=== PATIENT | female | born 1955 | race Caucasian/White ===

== ENCOUNTER 2020-09-07 07:32 | Outpatient (REF) | payer OTHER, SELFPAY ==
[2020-09-07 11:09] LABS: Hematocrit 38.1 % (37-47); Hemoglobin 12.5 g/dl (12.0-16.0); Mean Corpuscular HGB Conc 32.8 g/dl (31.0-35.0); Mean Corpuscular Hemoglobin 30.9 pg (27.0-33.0); Mean Corpuscular Volume 94.3 fL (80-98); Mean Platelet Volume 11.1 fL (9.4-12.3); Platelet Count 292 X10*3/uL (160-400); Red Blood Count 4.04 X10*6/uL (4.20-5.50); Red Cell Distribution Width 11.7 % (11.0-16.0); White Blood Count 5.2 X10*3/uL (4.8-10.8)
[2020-09-07 11:27] LABS: Alanine Aminotransferase 15 U/L (0-31); Albumin Level 4.2 g/dL (3.5-5.0); Alkaline Phosphatase 65 U/L (39-117); Anion Gap 14 (12-20); Aspartate Amino Transferase 17 U/L (5-31); Bilirubin Total 0.7 mg/dL (0.0-1.0); Blood Urea Nitrogen 20 mg/dL (9-16); Calcium 9.5 mg/dL (8.4-10.2); Carbon Dioxide 29 mmol/L (22-29); Chloride 104 mmol/L (96-108); Cholesterol 252 mg/dL; Estimated Glomerular Filt Rate > 60; Glucose Fasting 98 mg/dL (60-99); HDL Cholesterol 71 mg/dL; LDL Cholesterol Calculated 169 mg/dl; Potassium 5.1 mmol/l (3.3-5.1); Sodium 142 mmol/L (135-145); Total Protein 6.4 g/dL (6.5-8.0); Triglycerides 61 mg/dL
[2020-09-08 10:26] LABS: ~HepC Num1 0.07 S/CO (0.00-0.79); ~Hepatitis C Antibody Nonreactive (Nonreactive)
== END 2020-09-07 07:33 | disposition home or self-care (01) ==
LOC: HO.MANLDS 07:32
PROVIDERS: PCP Internal Medicine; Visit Provider Internal Medicine
DX: Z00.00 Encounter for general adult medical examination without abnormal findings (principal); Z11.59 Encounter for screening for other viral diseases
CPT/HCPCS: 36415; 80053; 80061; 85027; 86803

== ENCOUNTER 2025-07-02 09:27 | Outpatient (AMB) | payer MEDICARE, OTHER, SELFPAY ==
--- NOTE | 2025-07-02 09:30 | A.OFFVIS_ITS ---
Vital Signs 3 07/02/25 10:27 Height 5 ft 6 in Weight 126 lb BMI 20.3 BP 169/75 H Blood Pressure Location Lt brachial Position Sitting Pulse 56 Intake Visit Reasons: Left hip lipoma Intake Note: Patient is seen in office evalaution of the lipoma of the upper extremity. Pt c/o: has a mas on the back of the left hip, was removed in the past [address] Martinez, it came back a year ago, denies pain or increase, discharge or other concerns Supervisor Car Installations Required: No Accompanied by: Spouse Allergies codeine Allergy (Mild, Verified 07/02/25 10:39) Unknown lisinopril Allergy (Mild, Verified 07/02/25 10:39) Unknown medroxyprogesterone (From Provera) Allergy (Mild, Verified 07/02/25 10:39) Unknown metronidazole Allergy (Mild, Verified 07/02/25 10:39) Unknown naproxen (From Aleve) Allergy (Mild, Verified 07/02/25 10:39) Unknown Seasonal Allergies Allergy (Mild, Verified 07/01/25 15:59) Unknown vicryl stitches Allergy (Mild, Uncoded 07/02/25 10:39) Unknown Medication List - Last Reconciled 07/02/25 by Edward North MD calcium carbonate-vitamin D3 600 mg-12.5 mcg (500 unit) caps PO digestive enzymes 1 tab PO DAILY fluticasone furoate 27.5 mcg/actuation (Flonase Sensimist) 1 spray intranasal DAILY L. acidophilus,casei,rhamnosus 50 billion cell (BiomePRO) 1 cap PO DAILY metoprolol succinate ER 50 mg PO DAILY olmesartan 5 mg PO DAILY HPI Comments Details: 69-year-old female patient presenting with a palpable lump located in the left hip. She previously underwent excision of this lump in 2018 but over the past year has noted the lump to have returned in seems to be increasing in size. She reports to lipoma was initially like the size of a deck of cards. She denies any problems with the previous surgical procedure although does report an allergy to Vicryl sutures noted after previous laparoscopic surgery. She has requested excision of this recurrent lipoma of the left hip. [facility] Medical History (Updated 07/02/25 @ 10:29 by Edward North MD) Hypertension Surgical History (Updated 07/02/25 @ 10:36 by ZION Young) Hx of colonoscopy (04/28/24) Hx of local excision of skin lesion (~2017) History of surgery on left wrist (~2016) Hx of tonsillectomy (~1989) History of appendectomy (~1976) Hx laparoscopic cholecystectomy Review of Systems Const All systems reviewed & are unremarkable except as noted in HPI and below Physical Exam Vital Signs: Last Vital Signs Pulse 56 07/02/25 10:27 BP 169/75 H 07/02/25 10:27 BMI result Body Mass Index 20.3 Const General: cooperative and no acute distress Nutritional Appearance: well nourished Orientation/consciousness: patient oriented x3 Limitations: no limitations HEENT Head: Yes normocephalic and Yes atraumatic Ears: hearing grossly normal bilaterally Resp Effort & Inspection: normal respiratory effort, no audible wheezes, no cough and no respiratory distress Cardio Jugular venous distension: no JVD GI Inspection: Yes normal to inspection Skin Other: Warm, dry, no rash Neuro General: patient oriented x3 Extrem Other: Left hip with a well-healed incision and a palpable mass located just below this consistent with a lipoma measuring approximately 5 cm in diameter General: Yes no clubbing, cyanosis or edema Upper/lower leg/hip images: 2 1. Previous incision left hip 2. 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 She is requesting excision of this recurrent lipoma. Her previous procedure was done under anesthesia and she would prefer to do the same for this recurrent lipoma. I reviewed the procedure, risks, and alternatives and she consents to excision of the left hip lipoma which will be scheduled as a short-stay surgery. Coding Level of Care Code New Pt Level 4 (92563) Diagnoses Lipoma of left lower extremity D17.24 Laterality: left Lipoma location: lower extremity
[2025-07-02 10:27] VITALS: BP 169/75; PULSE 56; BMI 20.3
--- OUTSIDE RECORDS SUMMARY | 2025-07-02 10:28 | XMS_ITS | Encounter Summary ---
Author Organization [facility] Address [address] [facility] [address] [place] [address] Phone Care Team Providers Care Shoe Stock Associate Name Role Phone Edgardo Krishnan Lobo ROBLES Unavailable Kristal Wheeler PHYSICIST LIGHT AND OPTICS Unavailable Willy Juarez MD Unavailable [phone] Pastora Dee PHYSICIST LIGHT AND OPTICS Unavailable [phone] Sophia Pedroza PHYSICIST LIGHT AND OPTICS Unavailable Mendoza Atkinson MD Unavailable [phone] Radha Reyes FIRMWARE MANAGER Unavailable [phone] Edgardo Krishnan Primary Care Provider [phone] Augustine Wood MD Primary Care Provider + [phone] Augustine Wood MD Unavailable [phone] Encounter Details Date Type Department Care Team (Latest Contact Info) Description 01/22/2019 Transcribe Orders [facility] [address] [place] [address] Yandel Hightower MD [address] [facility], [address] [place], [place] [id number] [email or web address] Essential hypertension, malignant (Primary Dx) Social History Tobacco Use Types Packs/Day Years Used Date Smoking Tobacco: Never Smokeless Tobacco: Never Alcohol Use Standard Drinks/Week Comments No 0 (1 standard drink = 0.6 oz pur e alcohol) Comments No Sex and Gender Information Value Date Recorded Sex Assigned at Female 06/19/2020 7:21 PM EDT Legal Sex Female 9:54 PM EDT Gender Identity Female 08/28/2021 2:40 PM EST Sexual Orientation Not on file Occupation Industry Job Start Date Job End Date retired Not on file Not on file Not on file documented as of this encounter Plan of Treatment Upcoming Encounters Date Type Department Care Team (Late st Contact Info) Description 04/13/2026 2:30 PM EDT Office Visit [facility] [address] [place] [address] [place] [address] Augustine Wood MD [address] [facility], [address] [place] [address] [email or web address] documented as of this encounter Results * Albumin (01/22/2019 7:30 AM EDT) ALBUMIN 4.4 3.9 - 4.8 g/dL [facility] Blood 01/22/2019 7:30 AM EDT 01/22/2019 7:34 AM EDT Yandel Hightower MD LAB BLOOD ORDERABLES Final Re sult Performing Organization Address [facility] Co de Phone Number [address] [address] * Magnesium (01/22/2019 7:30 AM EDT) MAGNESIUM 2.1 1.6 - 2.6 mg/dL [facility] Blood 01/22/2019 7:30 AM EDT 01/22/2019 7:34 AM EDT Yandel Hightower MD LAB BLOOD ORDERABLES Final Re sult Performing Organization Address [facility] Co de Phone Number [address] [address] * Phosphorus (01/22/2019 7:30 AM EDT) PHOSPHORUS 4.1 2.7 - 4.5 mg/dL [facility] Blood 01/22/2019 7:30 AM EDT 01/22/2019 7:34 AM EDT us Yandel Hightower MD LAB BLOOD ORDERABLES Final Re sult Performing Organization Address City/[facility]/ZIP Co de Phone Number [address] [address] * (ABNORMAL) Basic metabolic panel (01/22/2019 7:30 AM EDT) SODIUM 142 133 - 146 mmol/L [facility] CHLORIDE 104 96 - 108 mmol/L [facility] POTASSIUM 5.2(H) 3.3 - 5.1 mmol/L [facility] CO2 28 21 - 35 mmol/L [facility] BUN 21(H) 6 - 19 mg/dL [facility] CREATININE 0.80 0.5 - 1.5 mg/dL [facility] GLUCOSE 110(H) 70 - 99 mg/dL [facility] CALCIUM 9.6 8.4 - 10.3 mg/dL [facility] EGFR 79 >59 mL/min/1.7 3m2 [facility] Comment:If patient is black, multiply result by 1.159. Estimated glomerular filtration rate calculated using the CKD-EPI equation. ANION GAP 15 10 - 20 mmol/L [facility] Blood 01/22/2019 7:30 AM EDT 01/22/2019 7:34 AM EDT us Yandel Hightower MD LAB BLOOD ORDERABLES Final Re sult Performing Organization Address City/[facility]/ZIP Co de Phone Number [address] [address] documented in this encounter Visit Diagnoses Diagnosis Essential hypertension, malignant- Primary documented in this encounter Care Teams Shoe Stock Associate Relationship Specialty Start Date End Date Edgardo Krishnan DO PCP - General Internal Medicine 07/29/17 07/08/22 Augustine Wood MD [address] [facility], [address] [place] [address] [email or web address] PCP - General Family Medicine 07/09/22 Edgardo Krishnan DO Historical LMR Provider 06/17/17 Kristal Wheeler NP [address] [place] [address] Historical LMR Provider 06/17/17 2 Willy Juarez MD [address] [place] [address] Historical LMR Provider 06/17/17 Pastora Dee NP [address] [place] [phone] Historical LMR Provider 06/17/17 2 Sophia Pedroza NP [address] [place] [address] [email or web address] Historical LMR Provider 06/17/17 2 Mendoza Atkinson MD [address] [place] [address] Historical LMR Provider 06/17/17 2 Radha Reyes CNP [address] [facility] [place] [address] Historical LMR Provider 06/17/17 Augustine Wood MD [address] [place] [address], [address] [place] [address] [email or web address] Insurance Assigned Provider 12/07/23 documented as of this encounter Additional Source Comments The information contained in this document represents components of the legal health record. It is not the complete legal health record.[facility]
--- OUTSIDE RECORDS SUMMARY | 2025-07-02 10:28 | XMS_ITS | Encounter Summary ---
Author Organization [facility] Address [address] [facility] [address] [place] [address] Phone Care Team Providers Care Returned Telephone Equipment Appraiser Name Role Phone Eulogio Edgardo Diamond DO Unavailable Kristal Wheeler DECORATING INSTRUCTOR Unavailable [phone] Willy Juarez MD Unavailable Pastora Dee DECORATING INSTRUCTOR Unavailable [phone] Sophia Pedroza DECORATING INSTRUCTOR Unavailable Mendoza Atkinson MD Unavailable [phone] Radha Reyes COMPOUNDER FLAVORINGS Unavailable [phone] Eulogio Edgardo Lobo Primary Care Provider [phone] Augustine Wood MD Primary Care Provider [phone] Augustine Wood MD Unavailable [phone] Encounter Details Date Type Department Care Team (Late st Contact Info) Description 05/15/2019 Ancillary Orders Virtual Department [address] [place] [address] Chelsey Wang MD [address] [facility], [address] [place] [address] Breast screening Social History Tobacco Use Types Packs/Day Years [...] Description 04/13/2026 2:30 PM EDT Office Visit [facility] [address] [place] [address] Augustine Wood MD [address] [facility] [place] [address] [email or web address] documented as of this encounter Results * BI MAMMOGRAM SCREENING WITH TOMOSYNTHESIS WITH CAD (BILATERAL) (08/14/2019 12:04 PM EST) Anatomical Region Laterality Modality Breast Left, Breast Right, Breast Bilateral Bila teral Mammography 08/14/2019 1:36 PM EST Impressions 08/14/2019 1:38 PM EST Stable appearance relative to prior imaging. No findings suggestive of malignancy are seen. BI-RADS CATEGORY: 1 - Negative. DENSITY: The breast tissue is heterogeneously dense, an appearance which lowers the sensitivity of mammography. POS - [id number] Narrative 08/14/2019 1:38 PM EST Full-field digital mammography is obtained with computer-aided detection. Comparison with prior imaging from July 30, 2018 is made with older imaging dating back as far as January 12, 2013 also reviewed. There is heterogeneous fibroglandular density evident in the breasts. In addition to 2-D C view imaging, tomosynthesis images are obtained in two projections of each breast. No dominant soft tissue mass of concern, suspicious cluster of calcifications, significant interval skin changes, or architectural distortion is identified. Procedure Note Rod Mcintyre MD - 08/14/2019 Full-field digital mammography is obtained with computer-aided detection.Comparison with prior imaging from July 30, 2018 is made with olderimaging dating back as far as January 12, 2013 also reviewed. There is heterogeneous fibroglandular density evident in the breasts. Inaddition to 2-D C view imaging, tomosynthesis images are obtained in twoprojections of each breast. No dominant soft tissue mass of concern, suspicious cluster ofcalcifications, significant interval skin changes, or architecturaldistortion is identified. IMPRESSION: Stable appearance relative to prior imaging. No findings suggestive ofmalignancy are seen. BI-RADS CATEGORY: 1 - Negative. DENSITY: The breast tissue is heterogeneously dense, an appearance whichlowers the sensitivity of mammography. POS - [id number] us Chelsey Wang MD IMG MG EXAMS Final Resu lt documented in this encounter Visit Diagnoses Diagnosis Breast screening Breast screening, unspecified Breast screening Breast screening, unspecified documented in this encounter Care Teams Returned Telephone Equipment Appraiser Relationship Specialty Start Date End Date Edgardo Krishnan DO PCP - General Internal Medicine 07/29/17 07/08/22 Augustine Wood MD [address] [place] [address], [address] [place] [address] PCP - General Family Medicine 07/09/22 Edgardo Krishnan DO Historical LMR Provider 06/17/17 Kristal Wheeler NP [address] [place] [address] Historical LMR Provider 06/17/17 2 Willy Juarez MD [address] [place] [address] Historical LMR Provider 06/17/17 Pastora Dee NP [address] [place] [phone] Historical LMR Provider 06/17/17 2 Sophia Pedroza NP [address] [place] [address] [email or web address] Historical LMR Provider 06/17/17 2 Mendoza Atkinson MD [address] [place] [address] Historical LMR Provider 06/17/17 2 Radha Reyes CNP [address] [place] [address] [address] [place] [address] Historical LMR Provider 06/17/17 Augustine Wood MD [address] [place] [address], [address] [place] [address] Insurance Assigned Provider 12/07/23 documented as of this encounter Additional Source Comments The information contained in this document represents components of the legal health record. It is not the complete legal health record.[facility]
--- OUTSIDE RECORDS SUMMARY | 2025-07-02 10:28 | XMS_ITS | Encounter Summary ---
Author Organization [facility] Address [address] [facility] [address] [place] [address] Phone Care Team Providers Care Obgyn Hospitalist Physician Name Role Phone Eulogio Edgardo Diamond DO Unavailable Kristal Wheeler CREDIT INTERVIEWER Unavailable [phone] Willy Juarez MD Unavailable Pastora Dee CREDIT INTERVIEWER Unavailable [phone] Sophia Pedroza CREDIT INTERVIEWER Unavailable Mendoza Atkinson MD Unavailable [phone] Radha Reyes INCOME TAX ADVISOR Unavailable [phone] Eulogio Edgardo Lobo Primary Care Provider [phone] Augustine Wood MD Primary Care Provider [phone] Augustine Wood MD Unavailable [phone] Encounter Details Date Type Department Care Team (Late st Contact Info) Description 05/15/2019 Ancillary Orders [facility] [address] [place] [address] Chelsey Wang MD [address] [facility], [address] [place], [place] [id number] [email or web address] Social History Tobacco Use Types Packs/Day Years [...] Description 04/13/2026 2:30 PM EDT Office Visit [facility] [address] [place] [address] Augustine Wood MD [address] [place] [address], [address] [place] [address] documented as of this encounter Visit Diagnoses Not on filedocumented in this encounter Care Teams Obgyn Hospitalist Physician Relationship Specialty Start Date End Date Edgardo Krishnan DO PCP - General Internal Medicine 07/29/17 07/08/22 Augustine Wood MD [address] [place] [address], [address] [place] [address] PCP - General Family Medicine 07/09/22 Edgardo Krishnan DO Historical LMR Provider 06/17/17 Kristal Wheeler NP [address] [place] [address] Historical LMR Provider 06/17/17 2 Willy Juarez MD [address] [place] [address] Historical LMR Provider 06/17/17 Pastora Dee NP [address] [place] [address] Historical LMR Provider 06/17/17 2 Sophia Pedroza NP [address] [place] [address] [email or web address] Historical LMR Provider 06/17/17 2 Mendoza Atkinson MD [address] [place] [address] Historical LMR Provider 06/17/17 2 Radha Reyes CNP [address] [place] [address] [address] [place] [address] Historical LMR Provider 06/17/17 Augustine Wood MD [address] [place] [address], [address] [address] Insurance Assigned Provider 12/07/23 documented as of this encounter Additional Source Comments The information contained in this document represents components of the legal health record. It is not the complete legal health record.[facility]
--- OUTSIDE RECORDS SUMMARY | 2025-07-02 10:28 | XMS_ITS | Encounter Summary ---
Author Organization [facility] Address [address] [address] Phone Care Team Providers Care Call Center Support Representative Name Role Phone Edgardo Krishnan DO Unavailable Kristal Wheeler CRUST SORTER Unavailable [phone] Willy Juarez MD Unavailable Pastora Dee CRUST SORTER Unavailable Sophia Pedroza CRUST SORTER Unavailable Mendoza Atkinson MD Unavailable [phone] Radha Reyes DENTAL EQUIPMENT INSTALLER AND SERVICER Unavailable Edgardo Krishnan DO Primary Care Provider [phone] Augustine Wood MD Primary Care Provider [phone] Augustine Wood MD Unavailable [phone] Encounter Details Date Type Department Care Team (Late st Contact Info) Description 05/15/2019 Ancillary Orders Virtual Department [address] [place] [address] Edgardo Krishnan DO [address] [facility] [place] [address] Social History Tobacco Use Types Packs/Day Years [...] Description 04/13/2026 2:30 PM EDT Office Visit [facility] [address] [place] [address] Augustine Wood MD [address] [place] [address], [address] [place] [address] documented as of this encounter Visit Diagnoses Not on filedocumented in this encounter Care Teams Call Center Support Representative Relationship Specialty Start Date End Date Edgardo Krishnan DO [email or web address] PCP - General Internal Medicine 07/29/17 07/08/22 Augustine Wood MD [address] [place] [address], [address] [place] [address] PCP - General Family Medicine 07/09/22 Edgardo Krishnan DO Historical LMR Provider 06/17/17 Kristal Wheeler NP [address] [place] [address] Historical LMR Provider 06/17/17 2 Willy Juarez MD [address] [place] [address] Historical LMR Provider 06/17/17 Pastora Dee NP [facility] [place] [address] Historical LMR Provider 06/17/17 2 Sophia Pedroza NP [address] [place] [address] [email or web address] Historical LMR Provider 06/17/17 2 Mendoza Atkinson MD [address] [place] [address] Historical LMR Provider 06/17/17 2 Radha Reyes CNP [address] [place] [address] [address] [place] [address] Historical LMR Provider 06/17/17 Augustine Wood MD [address] [place] [address], [address] [place] [address] Insurance Assigned Provider 12/07/23 documented as of this encounter Additional Source Comments The information contained in this document represents components of the legal health record. It is not the complete legal health record.[facility]
--- OUTSIDE RECORDS SUMMARY | 2025-07-02 10:28 | XMS_ITS | Encounter Summary ---
Author Organization [facility] Address [address] [address] Phone Care Team Providers Care Mobile Battery Technician Name Role Phone Edgardo Krishnan DO Unavailable Kristal Wheeler PRODUCT SAFETY CONSULTANT Unavailable Willy Juarez MD Unavailable [phone] aPstora Dee PRODUCT SAFETY CONSULTANT Unavailable Sophia Pedroza PRODUCT SAFETY CONSULTANT Unavailable Mendoza Atkinson MD Unavailable [phone] Radha Reyes DONOR CENTER TECHNICIAN Unavailable Edgardo Krishnan DO Primary Care Provider [phone] Augustine Wood MD Primary Care Provider [phone] Augustine Wood MD Unavailable [phone] Encounter Details Date Type Department Care Team (Late st Contact Info) Description 05/12/2018 Ancillary Orders Virtual Department [address] [place] [address] Edgardo Krishnan DO [address] [facility] [place] [address] [email or web address] Breast screening Social History Tobacco Use Types [...] PM EST Sexual Orientation Not on file documented as of this encounter Plan of Treatment Upcoming Encounters Date Type Department Care Team (Late st Contact Info) Description 04/13/2026 2:30 PM EDT Office Visit [facility] [address] [place] [address] Augustine Wood MD 22 [facility], [address] [place] [address] [email or web address] documented as of this encounter Results * BI MAMMOGRAM SCREENING WITH TOMOSYNTHESIS WITH CAD (BILATERAL) (07/30/2018 8:05 AM EST) Anatomical Region Laterality Modality Breast Left, Breast Right, Breast Bilateral Bila teral Mammography 07/30/2018 8:40 AM EST Impressions 07/30/2018 8:41 AM EST No mammographic evidence of malignancy. RECOMMENDED FOLLOWUP: Routine screening mammography is recommended, as clinically appropriate. The results will be sent to the patient. BI-RADS CATEGORY: 1 - Negative. BREAST DENSITY: The breast tissue is heterogeneously dense, an appearance which lowers the sensitivity of mammography. POS - [id number] Narrative 07/30/2018 8:41 AM EST BI MAMMOGRAM SCREENING WITH TOMOSYNTHESIS WITH CAD (BILATERAL) HISTORY: Screening. COMPARISON: Prior studies dating back to 2011, most recently 07/29/2017. TECHNIQUE: Digital breast tomosynthesis was performed in CC and MLO projections. Reconstructed 2-D C-views generated from the tomosynthesis images. Images interpreted in conjunction with R-2 Image Chief Radiologic Technologist computer-aided detection (CAD). FINDINGS: BREAST DENSITY: The breast parenchyma is heterogeneously dense, which may lower the sensitivity of mammography. There are no suspicious masses, suspicious areas of architectural distortion or suspicious clusters of microcalcifications. Procedure Note Vidhya Garcia MD - 07/30/2018 BI MAMMOGRAM SCREENING WITH TOMOSYNTHESIS WITH CAD (BILATERAL) HISTORY: Screening. COMPARISON: Prior studies dating back to 2011, most recently 07/29/2017. TECHNIQUE: Digital breast tomosynthesis was performed in CC and MLOprojections. Reconstructed 2-D C-views generated from the tomosynthesisimages. Images interpreted in conjunction with R-2 Image Checkercomputer-aided detection (CAD). FINDINGS: BREAST DENSITY: The breast parenchyma is heterogeneously dense, which maylower the sensitivity of mammography. There are no suspicious masses, suspicious areas of architecturaldistortion or suspicious clusters of microcalcifications. IMPRESSION: No mammographic evidence of malignancy. RECOMMENDED FOLLOWUP: Routine screening mammography is recommended, asclinically appropriate. The results will be sent to the patient. BI-RADS CATEGORY: 1 - Negative. BREAST DENSITY: The breast tissue is heterogeneously dense, an appearancewhich lowers the sensitivity of mammography. POS - [id number] us Edgardo Krishnan DO IMG MG EXAMS Final Result documented in this encounter Visit Diagnoses Diagnosis Breast screening Breast screening, unspecified Breast screening Breast screening, unspecified documented in this encounter Care Teams Mobile Battery Technician Relationship Specialty Start Date End Date Edgardo Krishnan DO PCP - General Internal Medicine 07/29/17 07/08/22 Augustine Wood MD [address] [place] [address], [address] [place] [address] PCP - General Family Medicine 07/09/22 Edgardo Krishnan DO Historical LMR Provider 06/17/17 Kristal Wheeler NP [address] [place] [address] Historical LMR Provider 06/17/17 2 Willy Juarez MD [address] [place] [address] Historical LMR Provider 06/17/17 [place] [address] [place] [phone] Historical LMR Provider 06/17/17 2 Sophia Pedroza NP [address] [place] [address] [email or web address] Historical LMR Provider 06/17/17 2 Mendoza Atkinson MD [address] [place] [address] Historical LMR Provider 06/17/17 2 Radha Reyes CNP [address] [place] [address], [address] [address] Historical LMR Provider 06/17/17 Augustine Wood MD [address] [place] [address], [address] [place] [address] Insurance Assigned Provider 12/07/23 documented as of this encounter Additional Source Comments The information contained in this document represents components of the legal health record. It is not the complete legal health record.[facility]
--- OUTSIDE RECORDS SUMMARY | 2025-07-02 10:28 | XMS_ITS | Encounter Summary ---
Author Organization [facility] Address [address] [facility] [address] [place] [address] Phone Care Team Providers Care Fiscal Assistant Name Role Phone Edgardo Krishnan Lobo ROBLES Unavailable Kristal Wheeler FAST FOOD SHIFT SUPERVISOR Unavailable [phone] Willy Juarez MD Unavailable Pastora Dee FAST FOOD SHIFT SUPERVISOR Unavailable [phone] Sophia Pedroza FAST FOOD SHIFT SUPERVISOR Unavailable Mendoza Atkinson MD Unavailable [phone] Radha Reyes SUPERVISOR GRIPS Unavailable [phone] Edgardo Krishnan Primary Care Provider [phone] Augustine Wood MD Primary Care Provider [phone] Augustine Wood MD Unavailable [phone] Encounter Details Date Type Department Care Team (Latest Contact Info) Description 01/29/2018 Transcribe Orders [facility] [address] [place] [address] Yandel Hightower MD [address] [facility], [address] [place], [place] [id number] dulce Essential hypertension, benign (Primary Dx) Social History Tobacco Use Types [...] Description 04/13/2026 2:30 PM EDT Office Visit [facility] Medicine [address] [place] [address] [place] [address] Augustine Wood MD 22 [facility], [address] [place] [address] [email or web address] documented as of this encounter Results * Albumin (01/29/2018 8:46 AM EDT) ALBUMIN 4.0 3.9 - 4.8 g/dL [facility] Blood 01/29/2018 8:46 AM EDT 01/29/2018 9:15 AM EDT us Yandel Hightower MD LAB BLOOD ORDERABLES Final Re sult Performing Organization Address City/[facility] Co de Phone Number [address] [address] * Magnesium (01/29/2018 8:46 AM EDT) MAGNESIUM 2.0 1.6 - 2.6 mg/dL [facility] Blood 01/29/2018 8:46 AM EDT 01/29/2018 9:15 AM EDT us Yandel Hightower MD LAB BLOOD ORDERABLES Final Re sult Performing Organization Address [facility]/ZIP Co de Phone Number [address] [address] * Phosphorus (01/29/2018 8:46 AM EDT) PHOSPHORUS 2.8 2.7 - 4.5 mg/dL [facility] Blood 01/29/2018 8:46 AM EDT 01/29/2018 9:15 AM EDT Yandel Hightower MD LAB BLOOD ORDERABLES Final Re sult Performing Organization Address [facility] Co de Phone Number [address] [address] * Basic metabolic panel (01/29/2018 8:46 AM EDT) SODIUM 142 133 - 146 mmol/L [facility] CHLORIDE 103 96 - 108 mmol/L [facility] POTASSIUM 4.5 3.3 - 5.1 mmol/L [facility] CO2 29 21 - 35 mmol/L [facility] BUN 14 6 - 19 mg/dL [facility] CREATININE 0.70 0.5 - 1.5 mg/dL [facility] GLUCOSE 87 70 - 99 mg/dL [facility] CALCIUM 9.3 8.4 - 10.3 mg/dL [facility] EGFR 94 >59 mL/min/1.7 3m2 [facility] Comment:If patient is black, multiply result by 1.159. The eGFR calculation has changed from the MDRD equation to the CKD-EPI equation as of November 05, 2017. ANION GAP 15 10 - 20 mmol/L [facility] Blood 01/29/2018 8:46 AM EDT 01/29/2018 9:15 AM EDT Yandel Hightower MD LAB BLOOD ORDERABLES Final Re sult Performing Organization Address [facility] Co de Phone Number [address] [address] documented in this encounter Visit Diagnoses Diagnosis Essential hypertension, benign- Primary documented in this encounter Care Teams Fiscal Assistant Relationship Specialty Start Date End Date Edgardo Krishnan DO PCP - General Internal Medicine 07/29/17 07/08/22 Augustine Wood MD 22 [facility], [address] [place] [address] PCP - General Family Medicine 07/09/22 Edgardo Krishnan DO Historical LMR Provider 06/17/17 Kristal Wheeler NP [address] [place] [address] Historical LMR Provider 06/17/17 2 Willy Juarez MD [address] [place] [address] Historical LMR Provider 06/17/17 Pastora Dee NP [address] [place] [phone] Historical LMR Provider 06/17/17 2 Sophia Pedroza FAST FOOD SHIFT SUPERVISOR [address] [place] [address] [email or web address] Historical LMR Provider 06/17/17 2 Mendoza Atkinson MD [address] [place] [address] Historical LMR Provider 06/17/17 2 Radha Reyes CNP [address] [place] [address], [address] [place] [address] Historical LMR Provider 06/17/17 Augustine Wood MD [address] [place] [address], [address] [place] [address] [email or web address] Insurance Assigned Provider 12/07/23 documented as of this encounter Additional Source Comments The information contained in this document represents components of the legal health record. It is not the complete legal health record.[facility]
--- OUTSIDE RECORDS SUMMARY | 2025-07-02 10:28 | XMS_ITS | Clinical Summary ---
Author Organization [facility] Address [address] [place] [address] Care Team Providers Care Lead Burner Supervisor Name Role Phone Unavailable Primary Care Provider Unavailabl e Social History Tobacco Use Types Packs/Day Years Used Date Smoking Tobacco: Never Assessed Comments Unknown Sex and Gender Information Value Date Recorded Sex Assigned at Not on file Legal Sex Female 1:11 AM EST Gender Identity Not on file Sexual Orientation Not on file Plan of Treatment Health Maintenance Due Date Last Done Comments Breast Cancer Screening 1955 Colorectal Cancer Screening: Colonoscopy 1955 Pneumococcal Vaccine: 50+ Years (2 of 2 - PCV20 or PCV21) 10/02/2021 10/02/2020 Falls Risk Assessment 06/09/2024 Hepatitis C Screening 06/09/2024 Osteoporosis Screening (Bone Density Screening) 06/09/2024 Social Influencers of Health Screening 06/09/2024 Depression Screening 09/02/2024 COVID-19 Vaccine (3 - 2024-2 6 season) 2025 11/07/2020, 10/17/2020 Influenza Vaccine (#1) 2025 05/28/2016 DTaP,Tdap,and Td Vaccines (2 - Td or Tdap) 09/13/2030 09/13/2020 RSV Immunization Adult Patients (1 - 1-dose 75+ series) 2031 Zoster Vaccines Completed 03/24/2019, 12/26/2018 HIB Vaccines Aged Out No longer eligi ble based on patient's age to complete this topic HPV Vaccines Aged Out No longer eligi ble based on patient's age to complete this topic Hepatitis A Vaccines Aged Out No long er eligible based on patient's age to complete this topic Hepatitis B Vaccines Aged Out No long er eligible based on patient's age to complete this topic IPV Vaccines Aged Out No longer eligi ble based on patient's age to complete this topic MMR Vaccines Aged Out No longer eligi ble based on patient's age to complete this topic Meningococcal ACWY Vaccine Aged Out N o longer eligible based on patient's age to complete this topic Meningococcal B Vaccine Aged Out No l onger eligible based on patient's age to complete this topic RSV Immunization Patients Under 20 months Aged Out No longer eligible b ased on patient's age to complete this topic Varicella Vaccines Aged Out No longer eligible based on patient's age to complete this topic
--- OUTSIDE RECORDS SUMMARY | 2025-07-02 10:29 | XMS_ITS | Encounter Summary ---
Author Organization [facility] Address [address] [place] [address] Phone Care Team Providers Care Floor Surfacer Name Role Phone Eulogio Edgardo Diamond DO Unavailable Kristal Wheeler NP Unavailable Willy Juarez MD Unavailable Pastora Dee BAKING ASSISTANT Unavailable [phone] Sophia Pedroza BAKING ASSISTANT Unavailable [phone] Mendoza Atkinson MD Unavailable [phone] Radha Reyes OCEAN FREIGHT FORWARDER Unavailable [phone] Edgardo Krishnan DO Primary Care Provider [phone] Augustine Wood MD Primary Care Provider [phone] Augustine Wood MD Unavailable [phone] Reason for Referral * MRI/CAT Scan - Closed Specialty Diagnoses / Procedures Referred By Contac t Referred To Contact Radiology Diagnoses BLANC (dyspnea on exertion) Cough Procedures CT Chest Zuleima Lay CNP Phone: tel: fax: mailto: Referral ID Status Reason Start Date Expiration Date Visits Re quested Visits Authorized [id number] Closed 08/20/2017 09/18/2017 1 1 Encounter Details Date Type Department Care Team (Late st Contact Info) Description 08/20/2017 Ancillary Orders Virtual Department [address] [place] [address] Zuleima Lay CNP [address] [place] [address] BLANC (dyspnea on exertion); Cough Social History Tobacco Use Types Packs/Day Years Used Date Smoking Tobacco: Never Assessed Comments No Sex and Gender Information Value Date Recorded Sex Assigned at Female 06/19/2020 7:21 PM EDT Legal Sex Female 9:54 PM EDT Gender Identity Female 08/28/2021 2:40 PM EST Sexual Orientation Not on file documented as of this encounter Plan of Treatment Upcoming Encounters Date Type Department Care Team (Late Contact Info) Description 04/13/2026 2:30 PM EDT Office Visit [facility] Medicine [address] [place] [address] [place] [address] Augustine Wood MD 22 [facility], [address] [place] [address] documented as of this encounter Results * CT CHEST WITH CONTRAST (09/03/2017 1:53 PM EST) Anatomical Region Laterality Modality Chest Computed Tomogra phy 09/03/2017 2:12 PM EST Impressions 09/03/2017 2:37 PM EST Underlying COPD but otherwise essentially normal CT chest. No acute pathology nor signs of malignancy. Incidental non-obstructing left kidney stone. TOTAL CTDIvol: 12.40 mGy POS - [id number] Edited by: Ayanna Diallo on 09/03/2017 2:32 PM Narrative 09/03/2017 2:37 PM EST Automated exposure control. Multiplanar reconstructions. Contrast-enhanced exam. Compare chest x-ray 08/14/2017. FINDINGS: No nodules or masses on either side. No infiltrate or interstitial lung disease. Tracheobronchial tree widely patent. No filling defects or bronchiectasis. Mild generalized hyperinflation consistent with at least moderate underlying emphysema. No adenopathy. Heart and great vessels unremarkable. No significant coronary artery calcification. No thyroid or adrenal pathology. 6 mm non-obstructing stone mid to lower left kidney. No acute or worrisome bony abnormalities. Procedure Note Thomas Paul MD - 09/03/2017 Automated exposure control. Multiplanar reconstructions. Contrast-enhanced exam. Compare chest x-ray 08/14/2017. FINDINGS: No nodules or masses on either side. No infiltrate or interstitial lung disease. Tracheobronchial tree widely patent. No filling defects orbronchiectasis. Mild generalized hyperinflation consistent with at least moderateunderlying emphysema. No adenopathy. Heart and great vessels unremarkable. No significant coronary arterycalcification. No thyroid or adrenal pathology. 6 mm non-obstructing stone mid to lower left kidney. No acute or worrisome bony abnormalities. IMPRESSION: Underlying COPD but otherwise essentially normal CT chest. No acutepathology nor signs of malignancy. Incidental non-obstructing left kidneystone. TOTAL CTDIvol: 12.40 mGy POS - [id number] Edited by: Ayanna Diallo on 09/03/2017 2:32 PM Zuleima Lay OCEAN FREIGHT FORWARDER IMG CT CHEST Final Resul t documented in this encounter Visit Diagnoses Diagnosis BLANC (dyspnea on exertion) Other dyspnea and respiratory abnormality Cough BLANC (dyspnea on exertion) Other dyspnea and respiratory abnormality Cough documented in this encounter Care Teams Floor Surfacer Relationship Specialty Start Date End Date Edgardo Krishnan DO [email or web address] PCP - General Internal Medicine 07/29/17 07/08/22 Augustine Wood MD [address] [place] [address], [address] [place] [address] PCP - General Family Medicine 07/09/22 Edgardo Krishnan DO Historical LMR Provider 06/17/17 Kristal Wheeler NP [address] [place] [address] Historical LMR Provider 06/17/17 2 Willy Juarez MD [address] [address] Historical LMR Provider 06/17/17 Pastora Dee NP [address] [place] [phone] Historical LMR Provider 06/17/17 2 Sophia Pedroza NP [address] [place] [address] [email or web address] Historical LMR Provider 06/17/17 2 Mendoza Atkinson MD [address] [place] [address] Historical LMR Provider 06/17/17 2 Radha Reyes CNP [address] [place] [address], [address] [place] [address] Historical LMR Provider 06/17/17 Augustine Wood MD [address] [place] [address], [address] [place] [address] [email or web address] Insurance Assigned Provider 12/07/23 documented as of this encounter Additional Source Comments The information contained in this document represents components of the legal health record. It is not the complete legal health record.[facility]
--- OUTSIDE RECORDS SUMMARY | 2025-07-02 10:29 | XMS_ITS | Encounter Summary ---
Author Organization [facility] Address [address] [facility] [address] [place] [address] Phone Care Team Providers Care Internal Grinder Set Up Operator Name Role Phone Eluogio Edgardo Diamond DO Unavailable Kristal Wheeler NP Unavailable Willy Juarez MD Unavailable Pastora Dee SEARCH PLANNER Unavailable [phone] Sophia Pedroza SEARCH PLANNER Unavailable Mendoza Atkinson MD Unavailable [phone] Radha Reyes CHECKER LOADER Unavailable Eulogio Edgardo Diamond DO Primary Care Provider [phone] Augustine Wood MD Primary Care Provider [phone] Augustine Wood MD Unavailable [phone] Reason for Referral * MRI/CAT Scan - Closed Specialty Diagnoses / Procedures Referred By Contac t Referred To Contact Radiology Diagnoses BLANC (dyspnea on exertion) Pre-syncope Hypertension, unspecified type Procedures NC Myocardial Perfusion Exercise Multiple Zuleima Lay CNP Phone: tel: fax: [email or web address] Referral ID Status Reason Start Date Expiration Date Visits Re quested Visits Authorized [id number] Closed 08/16/2017 09/14/2017 1 1 Encounter Details Date Type Department Care Team (Late st Contact Info) Description 08/16/2017 Ancillary Orders Virtual Department [address] [place] [address] Zuleima Lay CNP 12 [place] [address] BLANC (dyspnea on exertion); Pre-syncope; Hypertension, unspecified type Social History Tobacco Use Types Packs/Day Years [...] Description 04/13/2026 2:30 PM EDT Office Visit [facility] Medicine [address] [place] [address] Augustine Wood MD 22 [facility], [address] [place] [address] documented as of this encounter Results * NC Myocardial Perfusion Exercise Multiple (08/19/2017 12:36 PM EST) Anatomical Region Laterality Modality Heart, Vascular Nuclear Medicine 08/19/2017 1:12 PM EST Impressions 08/19/2017 1:16 PM EST No findings of significant prior infarction or current ischemia are identified. Estimated greater than 70% left ventricular ejection fraction. S/S: Dyspnea on exertion, presyncope, hypertension POS - [id number] Narrative 08/19/2017 1:16 PM EST The patient is injected intravenously with 9.3 mCi of Tc99m labeled Cardiolite at rest and 30.1 mCi with the same agent at stress. SPECT images are obtained of both injections and are gated at stress. The patient is stressed utilizing an exercise test . Evaluation of the left ventricular perfusion discloses a normal size left ventricle. No fixed or reversible perfusion defects are seen. There is minor septal hypokinesis with a greater than 70% left ventricular ejection fraction.. Procedure Note Rod Mcintyre MD - 08/19/2017 The patient is injected intravenously with 9.3 mCi of Tc99m labeledCardiolite at rest and 30.1 mCi with the same agent at stress. SPECTimages are obtained of both injections and are gated at stress. Thepatient is stressed utilizing an exercise test . Evaluation of the left ventricular perfusion discloses a normal size leftventricle. No fixed or reversible perfusion defects are seen. There isminor septal hypokinesis with a greater than 70% left ventricular ejectionfraction.. IMPRESSION: No findings of significant prior infarction or current ischemia areidentified. Estimated greater than 70% left ventricular ejectionfraction. S/S: Dyspnea on exertion, presyncope, hypertension POS - [id number] Zuleima Lay CHECKER LOADER CV NM CARDIAC Final Resul t documented in this encounter Visit Diagnoses Diagnosis BLANC (dyspnea on exertion) Other dyspnea and respiratory abnormality Pre-syncope Syncope and collapse Hypertension, unspecified type BLANC (dyspnea on exertion) Other dyspnea and respiratory abnormality Pre-syncope Syncope and collapse Hypertension, unspecified type documented in this encounter Care Teams Internal Grinder Set Up Operator Relationship Specialty Start Date End Date Edgardo Krishnan DO [email or web address] PCP - General Internal Medicine 07/29/17 07/08/22 Augustine Wood MD [address] [place] [address], [address] [place] [address] [email or web address] PCP - General Family Medicine 07/09/22 Edgardo Krishnan DO Historical LMR Provider 06/17/17 Kristal Wheeler NP [address] [facility] [address] [place] [address] Historical LMR Provider 06/17/17 2 Willy Juarez MD [address] [place] [address] Historical LMR Provider 06/17/17 Pastora Dee NP [address] [place] [phone] Historical LMR Provider 06/17/17 2 Sophia Pedroza NP [address] [place] [address] [email or web address] Historical LMR Provider 06/17/17 2 Mendoza Atkinson MD [address] [place] [address] Historical LMR Provider 06/17/17 2 Radha Reyes CNP [address] [place] [address], [address] [place] [address] Historical LMR Provider 06/17/17 Augustine Wood MD [address] [place] [address], [address] [place] [address] Insurance Assigned Provider 12/07/23 documented as of this encounter Additional Source Comments The information contained in this document represents components of the legal health record. It is not the complete legal health record.[facility]
--- OUTSIDE RECORDS SUMMARY | 2025-07-02 10:29 | XMS_ITS | Clinical Summary ---
Author Organization [facility] Address [address] [address] Phone Care Team Providers Care Park Ranger Name Role Phone Edgardo Krishnan DO Unavailable Augustine Wood MD Primary Care Provider [phone] Augustine Wood MD Unavailable [phone] Allergies Active Allergy Reactions Criticality Noted Date Comments Naproxen Sodium Hives 11/22/2017 Codeine GI Upset,Nausea and/ or Vomiting,Nausea And Vomiting 11/22/2017 Other reaction(s): Other (see comments) Lisinopril Cough 11/22/2017 Other reaction(s): Other (see comments) Losartan 02/06/2021 Medroxyprogesterone Hives 11/22/2017 Other reaction(s): Other (see comments) Meperidine 09/03/2019 Other reaction(s): Other (see comments) Metronidazole 11/22/2017 Burning feeling on hands and feet Other reaction(s): Other (see comments) Burning feeling on hands and feet Naproxen Hives 11/22/2017 Other reaction(s): Other (see comments) Medications Lactobacillus acidophilus 10 billion cell Cap 1 cap(s) Active metoprolol succinate (TOPROL-XL) 50 MG 24 hr tablet Take 1 tablet (50 mg total) by mouth daily. Take 1 tablet (50 mg total) by mouth daily. 90 tablet 1 09/30/19 24 Active L. acidophilus,bear ei,rhamnosus (BIOMEPRO) 50 billion cell CpDR Take 50 Billion Cells by mouth daily. Active digestive enzymes (ENZYME DIGEST) Cap Take 400 mg by mouth daily. Active betamethasone valerate 0.1 % cream Apply topically daily. As needed 15 g 02/26/20 24 Active lysine 500 mg Tab Take 500 mg by mouth daily. 10/03/19 25 Active COLLAGEN-BIOTIN -ASCORBIC ACID ORAL Take 6,000 mg by mouth daily. 01/15/20 25 Active olmesartan (BENICAR) 5 mg tablet TAKE 1 TABLET BY MOUTH EVERY DAY 90 tablet 06/21/20 25 Active olmesartan (BENICAR) 5 mg tablet TAKE 1 TABLET BY MOUTH EVERY DAY 90 tablet 03/18/20 25 025 Discontinued Active Problems Problem Noted Date Diagnosed Date Seasonal allergies 04/13/2025 Benign paroxysmal positional vertigo 04/13/2025 Hypervitaminosis D 03/29/2025 Assessment & Plan (03/30/2025 12:23 PM EDT): She is holding vitamin D. Orders: 25-OH vitamin D; Future Stage 3a chronic kidney disease 03/26/2025 Assessment & Plan (03/30/2025 12:23 PM EDT): Repeat labs in 8 weeks or so. Orders: CBC and differential; Future Basic metabolic panel; Future Primary osteoarthritis involving multiple joints 04/26/2023 Assessment & Plan (04/26/2023 10:03 AM EDT): Osteoarthritis also present in other areas with stiffness and gelling but without swelling. Suggested she try Tylenol 650 when needed. She does not need any lab work at this visit. Localized osteoporosis witho ut current pathological fracture 01/09/2023 Age-related osteoporosis wit hout current pathological fracture 01/09/2023 Assessment & Plan (03/30/2025 12:23 PM EDT): Other hyperlipidemia 09/09/2020 Assessment & Plan (03/30/2025 12:23 PM EDT): Check fasting lipids in 8 weeks. Orders: Lipid panel; Future Irritable bowel syndrome with diarrhea 8 Primary hypertension 11/22/2017 Assessment & Plan (03/30/2025 12:23 PM EDT): Continue olmesartan. Primary osteoarthritis of both hands Assessment & Plan (04/26/2023 10:02 AM EDT): Osteoarthritis in both hands with prominent IP nodes but without synovitis or swelling. Suggested she can try topical diclofenac gel on her hands when they get stiff and painful. She prefers not to take any oral anti-inflammatories. Resolved Problems Problem Noted Date Diagnosed Date Resolved Date Gastroesophageal reflux dise ase without esophagitis 12/16/2018 03/29/2025 Overview (12/16/2018): on Zantac Encounters Date Type Department Care Team Description 06/18/[address] [place] [address] Poornima Foster PA-C Medication Refill 05/28/[address] [place] [address] Augustine Wood MD Referral (General Surgery [facility]) 05/04/2025 9:40 AM EDT Office Visit [facility] [address] [place] [address] [place] [address] Chelsey Wang MD Encounter for routine gynecologic examination in Medicare patient (Primary Dx); Breast cancer screening by mammogram; Screening for cervical cancer 04/21/[address] [place] [address] Yumiko Mckinnon MA AT/ Medicare Initial Evaluation & POC dated 04/12/25 04/13/2025 3:15 PM EDT Office Visit [address] [place] [address] Augustine Wood MD Benign paroxysmal positional vertigo, unspecified laterality (Primary Dx); Seasonal allergies 04/12/[address] [place] [address] Augustine Wood MD Referral ([facility]) from Last 3 Months Immunizations Immunization Administration Dates Next Due COVID-19 (Pre-06/24) Pfizer Vaccine, mRNA, PF 07/02/2021,11/07/2020,10/17/2020 Influenza High-Dose Quadriva lent Preservative Free IM 06/11/2023,05/25/2022 Influenza High-Dose Trivalen t Preservative Free IM 07/26/2024 Influenza Quadrivalent Preservative Free IM 05/03,06/10/2020 Influenza Quadrivalent w/ Preservative IM 2019 Influenza Trivalent Adjuvant ed Preservative free IM 05/28/2016 Pneumococcal conjugate PCV13 10/02/2020 Pneumococcal polysaccharide PPSV23 10/06/2021 Tdap 09/13/2020 Zoster recombinant 03/24/2019,12/26/2018 Family History Medical History Relation Comments Stroke Father Ovarian cancer Maternal Aunt CV disease Maternal Grandfather CV disease Maternal Grandmother Diabetes mellitus Mother Hypertension Mother Stroke Mother Breast cancer Niece Hypertension Sibling 1 Stroke Sibling 1 Relation Status Comments Brother 1 Alive Brother 2 Alive Brother 3 Alive Father Maternal Aunt Maternal Grandfather Maternal Grandmother Mother Niece Alive Sibling 1 Sibling 2 Sister 1 Alive Sister 2 Alive Sister 3 Alive Social History Tobacco Use Types Packs/Day Years Used Date Smoking Tobacco: Never Passive Smoke Exposure: Never Smokeless Tobacco: Never Tobacco Cessation:Counseling Given: Not Answered Alcohol Use Standard Drinks/Week Comments Yes 0 (1 standard drink = 0.6 oz pur e alcohol) Very occasional Child or Family Care Answer Date Record ed Do you have problems with on e of the following making it difficult for you to work, study, or receive health care? No 07/06/2022 Education Answer Date Recorded Are you interested in more education? Not on bia e 07/15/2024 Are you concerned about learning? Not on file 07/15/2024 No 07/15/2024 No 07/15/2024 Food Answer Date Recorded Within the past 6 months we worried whether our food would run out before we got money to buy more. Never True 07/06/2022 Within the past 6 months the food we bought just didn't last and we didn't have enough money to get more. Never True Residential Stability Answer Date Recor ded What is your housing situation today? I have krystle ruggiero 07/06/2022 How many times have you move d in the past 12 months? Zero (I did not move) 07/06/2022 Paying for Meds Answer Date Recorded Do you have trouble paying for medicines? No 07/06/2022 Paying Utility Bills Answer Date Record ed Do you have trouble paying your heating or elect ricity bill? No 07/06/2022 Transportation Answer Date Recorded Has the lack of transportati on kept you from medical appointments or from getting medications? No 07/06/2022 Unemployment Answer Date Recorded Are you currently unemployed or working on a part-time or temporary basis, and looking for work? No 07/06/2022 Digital Access Answer Date Recorded No 01/28/2023 No 01/28/2023 Reliable internet access at home? Not on file 01/28/2023 Device with a working camera? Not on file Intimate Partner Violence Answer Date R ecorded Denied Basic Needs Not on file 03/25/2025 In the past 12 months have y ou been in a relationship with a person who hurts, threatens, or tries to control you? No 03/25/2025 Worried food would run out Not on file 03/25 In the past 12 months have y ou been in a relationship with a person who hurts, threatens, or tries to control you? No 03/25/2025 Comments No Sex and Gender Information Value Date Recorded Sex Assigned at Female 06/19/2020 7:21 PM EDT Legal Sex Female 9:54 PM EDT Gender Identity Female 08/28/2021 2:40 PM EST Sexual Orientation Not on file Occupation Industry Job Start Date Job End Date retired Not on file Not on file Not on file Last Filed Vital Signs Vital Sign Reading Time Taken Comments Blood Pressure 120/78 05/04/2025 9:32 AM EDT Pulse 65 04/13/2025 3:02 PM EDT Temperature 36.2 C (97.2 F) 04/13/2025 3:02 PM EDT Respiratory Rate - - Oxygen Saturation 99% 04/13/2025 3:02 PM EDT Inhaled Oxygen Concentration - - Weight 58.7 kg (129 lb 6.4 oz) 05/04/2025 9:32 A M EDT Height 164 cm (5' 4.57 ) 05/04/2025 9:32 AM EDT Body Mass Index 21.82 05/04/2025 9:32 AM EDT Plan of Treatment Upcoming Encounters Date Type Department Care Team (Late st Contact Info) Description 04/13/2026 2:30 PM EDT Office Visit [facility] [address] [place] [address] [place] [address] Augustine Wood MD [address] [facility], [address] [place] [address] [email or web address] Health Maintenance Due Date Last Done Comments COLOGUARD 2001 FIT TEST 2001 FOBT 2001 SIGMOIDOSCOPY 2001 VIRTUAL COLONOSCOPY 2001 INFLUENZA VACCINE (#1) 2025 , 06/11/2023, 05/25/2022, Additional history exists COVID-19 VACCINE ( season) 2025 07/02/2021, 11/07/2020, 10/17/2020 BLOOD PRESSURE 11/01/2025 05/04/2025 CREATININE LEVEL 03/25/2026 03/25/2025, , 01/15/2024, Additional history exists DEPRESSION SCREENING 03/25/2026 03/25/2025 POTASSIUM LEVEL 03/25/2026 03/25/2025, 01/01, 01/15/2024, Additional history exists MAMMOGRAM 11/17/2026 11/17/2024, 04/2024, 09/04/2022, Additional history exists LIPID PANEL 01/14/2029 01/15/2024, 01/02, 01/30/2023, Additional history exists PAP SMEAR 05/04/2030 05/04/2025, 06/02, 06/20/2020, Additional history exists Adult Td,Tdap Booster 09/13/2030 09/13/2020 COLONOSCOPY 04/28/2031 04/28/2024, 12/19/2020 COLORECTAL CANCER SCREENING 04/28/2031 RSV VACCINE (1 - 1-dose 75+ series) 2031 ZOSTER VACCINES Completed 03/24/2019, 12/26/2018 PNEUMOCOCCAL VACCINES (50+ years) Completed 10/06/2021, 10/02/2020 HEPATITIS C SCREENING Completed 07/12/2022 OSTEOPOROSIS SCREENING INITIAL (ONE-TIME) Completed 01/02/2023 SMOKING STATUS SCREENING (Once After 26 Yrs) Completed 05/04/2025 HEPATITIS A VACCINES Aged Out No long er eligible based on patient's age to complete this topic HIB VACCINES Aged Out No longer eligi ble based on patient's age to complete this topic MENINGOCOCCAL VACCINES (ACWY) Aged Out No longer eligible based on patient's age to complete this topic MENINGOCOCCAL VACCINES (B) Aged Out N o longer eligible based on patient's age to complete this topic Medical Devices Not on file Procedures Procedure Name Priority Date/Time Associated Diagnosis Comments PAP TEST Routine 05/04/2025 12:00 AM EDT RENAL PANEL Routine 03/25/2025 3:11 PM EDT Hyperkalemia BI MAMMOGRAM SCREENING WITH TOMOSYNTHESIS WITH CAD (BILATERAL) Routine 11/17/2024 7:57 AM EDT Visit for screening mammogram HM COLONOSCOPY FOR RESULT ENTRY ONLY Routine 04/28/2024 8:54 AM EDT LIPID PANEL Routine 01/15/2024 10:42 AM EDT Primary hypertension Other hyperlipidemia BD DXA AXIAL (SPINE) WITH HIP Routine 01/02/2023 8:27 AM EDT Estrogen deficiency HEPATITIS C ANTIBODY, QUALITATIVE Routine 07/12/2022 8:51 AM EST Need for hepatitis C screening test from Last 3 Months or Most Recently Relevant to Health Maintenance Results * Pap Test (05/04/2025 12:00 AM EDT) Report [address] [place] [address] Correctional Supply Supervisor: Nahun Alvarez MD REAL ESTATE CLERK Cytology Report FINAL DIAGNOSIS A. PAP SMEAR (THIN PREP) CE: SPECIMEN ADEQUACY: Satisfactory for evaluation; transformation zone present. INTERPRETATION: NEGATIVE FOR INTRAEPITHELIAL LESION OR MALIGNANCY. Atrophy. This specimen was analyzed by the automated ThinPrep Imaging System (Super[employer].) and the selected boland were reviewed by a aviation maintenance instructor. Electronically Signed Out By: FIFI Perry(ASCP) The Pap test is a screening test primarily for squamous cancers and precursors and has associated false-negative and false-positive results. New technologies such as liquid-based preparations may decrease but will not eliminate all false-negative results. Regular sampling and follow-up of unexplained clinical signs and symptoms are recommended to minimize false negative results. PROCEDURES/ADDENDA HPV Testing (Requested) Ordered Date: 05/05/2025 A. PAP SMEAR (THIN PREP) CE: High-risk HPV Panel w/ extended genotyping NEG HPV 16-NEG HPV 18-NEG HPV 45-NEG HPV 33/58-NEG HPV 31-NEG HPV 56/59/66-NEG HPV 51-NEG HPV 52-NEG HPV 35/39/68-NEG Performed by real-time polymerase chain reaction (PCR) at [address] using the FDA-approved BD Onclarity HPV Assay with extended genotyping. Uses of the assay in scenarios other than those approved by the FDA should be considered off-label use. The accuracy and precision of this test for all other off-label specimen sources has been verified in the Cytopathology Laboratory of the [facility] [place] and has not been cleared or approved by the U.S. Food and Drug Administration. Clinical correlation is advised. The assay assesses the E6/E7 DNA target and utilizes human beta globin as an internal control. Cytology and HPV testing are screening assays and should not be used as the sole means of detecting cancer. False-positives and false-negatives can occur. CLINICAL HISTORY Date of Last Menstrual Period: Not Provided Menstrual History: Post Menopausal Other Clinical Conditions: Screening Pap SPECIMEN SOURCE A: PAP SMEAR (THIN PREP) CE Patient Name: ERMA SCHAFER : 1955 (Age: 69) Sex: F Institution: [facility] Location: [facility] Date of Collection: 05/04/2025 Date of Reported: 05/07/2025 14:06 Results to: Chelsey Wang MD [facility] Final Diagnosis A. PAP SMEAR (THIN PREP) CE: SPECIMEN ADEQUACY: Satisfactory for evaluation; transformation zone present. INTERPRETATION: NEGATIVE FOR INTRAEPITHELIAL LESION OR MALIGNANCY. Atrophy. This specimen was analyzed by the automated ThinPrep Imaging System (SuperCloud.) and the selected boland were reviewed by a aviation maintenance instructor. [facility] Results\Inter pretation A. PAP SMEAR (THIN PREP) CE: High-risk HPV Panel w/ extended genotyping NEG HPV 16-NEG HPV 18-NEG HPV 45-NEG HPV 33/58-NEG HPV 31-NEG HPV 56/59/66-NEG HPV 51-NEG HPV 52-NEG HPV 35/39/68-NEG Performed by real-time polymerase chain reaction (PCR) at [facility] [place], [address] [place] [address] using the FDA-approved nCrypted Cloud Onclarity HPV Assay with extended genotyping. Uses of the assay in scenarios other than those approved by the FDA should be considered off-label use. The accuracy and precision of this test for all other off-label specimen sources has been verified in the Cytopathology Laboratory of the [facility] [place] and has not been cleared or approved by the U.S. Food and Drug Administration. Clinical correlation is advised. The assay assesses the E6/E7 DNA target and utilizes human beta globin as an internal control. Cytology and HPV testing are screening assays and should not be used as the sole means of detecting cancer. False-positives and false-negatives can occur. [facility] Conversion Type 05/04/2025 9:48 AM EDT us Chelsey Wang MD CYTOLOGY ORDERABLES Edited Result - Final [facility] [address] [place] [address] * (ABNORMAL) Renal panel (03/25/2025 3:11 PM EDT) SODIUM 136 133 - 146 mmol/L [facility] POTASSIUM 4.4 3.3 - 5.1 mmol/L [facility] CHLORIDE 99 96 - 108 mmol/L [facility] CO2 25 21 - 35 mmol/L [facility] GLUCOSE 107(H) 70 - 99 mg/dL [facility] BUN 27(H) 6 - 19 mg/dL [facility] CREATININE 1.20 0.5 - 1.5 mg/dL [facility] CALCIUM 9.8 8.4 - 10.3 mg/dL [facility] PHOSPHORUS 3.0 2.7 - 4.5 mg/dL [facility] ALBUMIN 4.4 3.9 - 4.8 g/dL [facility] EGFR 49(L) >59 mL/min/1.7 3m2 [facility] Comment:Estimated glomerular filtration rate calculated using the CKD-EPI refit equation. ANION GAP 16 10 - 20 mmol/L [facility] Blood 03/25/2025 3:11 PM EDT 03/25/2025 3:24 PM EDT us Leonardo Ware MD LAB BLOOD ORDERABLES Final Resul t Performing Organization Address City/State/[facility] Co de Phone Number [address] [address] * BI MAMMOGRAM SCREENING WITH TOMOSYNTHESIS WITH CAD (BILATERAL) (11/17/2024 7:57 AM EDT) Anatomical Region Laterality Modality Breast Left, Breast Right, Breast Bilateral Bila teral Mammography 11/18/2024 9:14 AM EDT Impressions 11/18/2024 9:21 AM EDT No mammographic evidence of malignancy in either breast. Annual screening mammography is recommended. BI-RADS 1 NEGATIVE The patient will be notified of the results and recommendations. Narrative 11/18/2024 9:21 AM EDT BI MAMMOGRAM SCREENING WITH TOMOSYNTHESIS WITH CAD (BILATERAL) Additional patient information: Screening. COMPARISON: Comparison is made with relevant prior imaging. Breast composition: The breasts are heterogeneously dense, which may obscure small masses. FINDINGS: No abnormal masses, suspicious calcifications, or other significant findings are identified mammographically in either breast. Procedure Note Angel Borjas MD - 11/18/2024 BI MAMMOGRAM SCREENING WITH TOMOSYNTHESIS WITH CAD (BILATERAL) Additional patient information: Screening. COMPARISON: Comparison is made with relevant prior imaging. Breast composition: The breasts are heterogeneously dense, which mayobscure small masses. FINDINGS: No abnormal masses, suspicious calcifications, or other significantfindings are identified mammographically in either breast. IMPRESSION: No mammographic evidence of malignancy in either breast. Annual screening mammography is recommended. BI-RADS 1 NEGATIVE The patient will be notified of the results and recommendations. Augustine Wood MD IMG MG EXAMS Final Resu lt * HM COLONOSCOPY FOR RESULT ENTRY ONLY (04/28/2024 8:54 AM EDT) Historical Provider [facility] MAINTENA[facility]CE Edited Result - Final * (ABNORMAL) Lipid panel (01/15/2024 10:42 AM EDT) HDL 83 mg/dL [facility] Comment: Interpretation <40 mg/dL: Low HDL cholesterol (major risk factor for CHD) Greater than or equal to 60 mg/dL: High HDL cholesterol ( negative risk factor for CHD) HDL - cholesterol is affected by a number of factors, e.g. smoking, excerise, hormones, sex and age. CHOLESTEROL 225 0 - 240 mg/dL [facility] TRIGLYCERIDES 58 30 - 160 mg/dL [facility] LDL 130(H) 50 - 129 mg/dL [facility] Comment: LDL levels in terms of risk for coronary heart disease: <100 mg/dL: Optimal 100-129 mg/dL: Near or above optimal 130-159 mg/dL: Borderline high 160-189 mg/dL: High >190 mg/dL: Very High CARDIAC RISK RATIO 2.7(L) 3.3 - 4.4 [facility] Blood 01/15/2024 10:4 2 AM EDT 01/15/2024 10:45 AM EDT us Augustine Wood MD LAB BLOOD ORDERABLES Final Result [address] [address] * BD DXA AXIAL (SPINE) WITH HIP (01/02/2023 8:27 AM EDT) Anatomical Region Laterality Modality Bone Density Bone Density 01/02/2023 12:0 8 PM EDT Impressions 01/02/2023 12:09 PM EDT Osteoporosis Reference Information: The T-score is the number of standard deviations above or below the standard which is normal for young adults at their peak bone mineral density. The World Health Organization (WHO) interprets the T-scores as follows: Above -1 Normal bone density Between -1 and -2.5 Osteopenia Equal to / or below -2.5 Osteoporosis As a practical clinical guideline, osteopenia may be graded as follows: Mild -1 through -1.5 Moderate -1.6 through -2.0 Severe -2.1 through -2.4 References: 1. NIH Osteoporosis and Related Bone Diseases http://www.osteo.org 2. International Society for Clinical Densitometry http://www.iscd.org 3. National Osteoporosis Foundation http://www.nof.org Narrative 01/02/2023 12:09 PM EDT STUDY: DUAL ENERGY X-RAY ABSORPTIOMETRY / DXA REASON FOR EXAM: Female, 67 years old. TECHNIQUE: Bone Mineral Density (BMD) measurements of the lumbar spine and bilateral hips were obtained. COMPARISON: None. FINDINGS: L1-L3 (L4 was excluded due to sclerosis) T score: -0.7. This corresponds to Normal bone density. Right femoral neck T score: -2.3. This corresponds to osteopenia Right total hip T score: -2.6. This corresponds to osteoporosis Left femoral neck T score: -2. This corresponds to osteopenia Left total hip T score: -2.5. This corresponds to osteoporosis Procedure Note Lashawn Boyle MD - 01/02/2023 STUDY: DUAL ENERGY X-RAY ABSORPTIOMETRY / DXA REASON FOR EXAM: Female, 67 years old. TECHNIQUE: Bone Mineral Density (BMD) measurements of the lumbar spineand bilateral hips were obtained. COMPARISON: None. FINDINGS: L1-L3 (L4 was excluded due to sclerosis) T score: -0.7. This correspondsto Normal bone density. Right femoral neck T score: -2.3. This corresponds to osteopenia Right total hip T score: -2.6. This corresponds to osteoporosis Left femoral neck T score: -2. This corresponds to osteopenia Left total hip T score: -2.5. This corresponds to osteoporosis IMPRESSION: Osteoporosis Reference Information: The T-score is the number of standard deviations above or below thestandard which is normal for young adults at their peak bone mineraldensity. The World Health Organization (WHO) interprets the T-scores asfollows: Above -1 Normal bone density Between -1 and -2.5 Osteopenia Equal to / or below -2.5 Osteoporosis As a practical clinical guideline, osteopenia may be graded as follows: Mild -1 through -1.5 Moderate -1.6 through -2.0 Severe -2.1 through -2.4 References: 1. NIH Osteoporosis and Related Bone Diseases http://www.osteo.org 2. International Society for Clinical Densitometry http://www.iscd.org 3. National Osteoporosis Foundation http://www.nof.org Augustine Wood MD IMG BD BONE DENSITY DEXA F inal Result * Hepatitis C antibody, qualitative (07/12/2022 8:51 AM EST) HCV NON-REACTIV E NON-REACTI VE [facility] Blood 07/12/2022 8:51 AM EST 07/12/2022 9:07 AM EST Augustine Wood MD LAB BLOOD ORDERABLES Final Result Performing Organization Address City/State/[facility] Co de Phone Number [facility] [address] [place], [place] [id number] from Last 3 Months or Most Recently Relevant to Health Maintenance Insurance [facility] [employer] MEDICARE SUPPLEMENT MEDICARE PART A & B [facility] [employer] MEDICARE SUPPLEMENT MEDICARE PART A & [facility] SUPPLEMENT MEDICARE PART A & B [employer] MEDICARE SUPPLEMENT MEDICARE PART A & B [employer] MEDICARE SUPPLEMENT MEDICARE PART A & B [employer] MEDICARE SUPPLEMENT MEDICARE PART A & B [facility] [employer] MEDICARE SUPPLEMENT MEDICARE PART A & B [facility] [employer] MEDICARE SUPPLEMENT MEDICARE PART A & B [facility] [employer] MEDICARE SUPPLEMENT MEDICARE PART A & B Care Teams Park Ranger Relationship Specialty Start Date End Date Augustine Wood MD [address] [place] [address], [address] [place] [address] PCP - General Family Medicine 07/09/22 Edgardo Krishnan DO Historical LMR Provider 06/17/17 Augustine Wood MD [address] [place] [address], [address] [place] [address] [email or web address] Insurance Assigned Provider 12/07/23 Additional Source Comments The information contained in this document represents components of the legal health record. It is not the complete legal health record.[facility]
--- OUTSIDE RECORDS SUMMARY | 2025-07-02 10:29 | XMS_ITS | Encounter Summary ---
Author Organization [facility] Address [address] [facility] [address] [place] [address] Phone Care Team Providers Care Electronic Equipment Repairer Name Role Phone Edgardo Krishnan DO Unavailable Augustine Wood MD Primary Care Provider [phone] Augustine Wood MD Unavailable [phone] Encounter Details Date Type Department Care Team (Late st Contact Info) Description 04/29/2023 Procedure Pass [facility], [address] [address] Social History Tobacco Use Types Packs/Day Years Used Date Smoking Tobacco: Never Passive Smoke Exposure: Never Smokeless Tobacco: Never Alcohol Use Standard Drinks/Week Comments Not Currently 0 (1 standard drink = 0.6 oz pur e alcohol) Very occasional Child or Family Care Answer Date Record ed Do you have problems with on e of the following making it difficult for you to work, study, or receive health care? No 07/06/2022 Education Answer Date Recorded Are you interested in help w ith more adult education (for example, completing high school, GED, job training, learning the Slovak language, technical skills, or developing parenting skills)? No 07/06/2022 Food Answer Date Recorded Within the past [...] with a working camera? Not on file Comments No Sex and Gender Information Value [...] Description 04/13/2026 2:30 PM EDT Office Visit [facility] Family Medicine [address] [place] [address] Augustine Wood MD [address] [place] [address], [address] [place] [address] [email or web address] documented as of this encounter Visit Diagnoses Not on filedocumented in this encounter Additional Health Concerns Assessment Noted Time PHQ-2 Depression Total Score: 0 01/09/20 23 8:40 PM EDT documented as of this encounter Care Teams Electronic Equipment Repairer Relationship Specialty Start Date End Date Augustine Wood MD [address] [place] [address], [address] [place] [address] [email or web address] PCP - General Family Medicine 07/09/22 Edgardo Krishnan DO Historical LMR Provider 06/17/17 Augustine Wood MD [address] [place] [address], [address] [place] [address] [email or web address] Insurance Assigned Provider 12/07/23 documented as of this encounter Additional Source Comments The information contained in this document represents components of the legal health record. It is not the complete legal health record.[facility]
--- OUTSIDE RECORDS SUMMARY | 2025-07-02 10:29 | XMS_ITS | Encounter Summary ---
Author Organization [facility] Address [address] [facility] [address] [place] [address] Phone Care Team Providers Care Desulphurizer Operator Name Role Phone Edgardo Krishnan Lobo ROBLES Unavailable Kristal Wheeler BACON SLICER Unavailable Willy Juarez MD Unavailable Pastora Dee BACON SLICER Unavailable [phone] Sophia Pedroza BACON SLICER Unavailable Mendoza Atkinson MD Unavailable [phone] Radha Reyes DIRECTOR OF CONTENT AND PROGRAMMING Unavailable [phone] Edgardo Krishnan Primary Care Provider [phone] Augustine Wood MD Primary Care Provider + [phone] Augustine Wood MD Unavailable [phone] Encounter Details Date Type Department Care Team (Latest Contact Info) Description 01/26/[address] [facility] [address] [place] [address] Yandel Hightower MD [address] [facility], [address] [place], [place] [id number] [email or web address] Essential hypertension, malignant (Primary Dx) Social [...] Description 04/13/2026 2:30 PM EDT Office Visit [facility] Family Medicine [address] [place] [address] [place] [address] Augustine Wood MD [address] [facility], [address] [place] [address] [email or web address] documented as of this encounter Results * Albumin (01/26/2020 9:11 AM EDT) ALBUMIN 4.3 3.9 - 4.8 g/dL [facility] Blood 01/26/2020 9:11 AM EDT 01/26/2020 9:33 AM EDT Yandel Hightower MD LAB BLOOD ORDERABLES Final Re sult Performing Organization Address [facility] Co de Phone Number [address] [address] * Phosphorus (01/26/2020 9:11 AM EDT) PHOSPHORUS 3.1 2.7 - 4.5 mg/dL [facility] Blood 01/26/2020 9:11 AM EDT 01/26/2020 9:33 AM EDT Yandel Hightower MD LAB BLOOD ORDERABLES Final Re sult Performing Organization Address City/[facility] Co de Phone Number [address] [address] * Magnesium (01/26/2020 9:11 AM EDT) MAGNESIUM 2.1 1.6 - 2.6 mg/dL [facility] Blood 01/26/2020 9:11 AM EDT 01/26/2020 9:33 AM EDT Yandel Hightower MD LAB BLOOD ORDERABLES Final Re sult Performing Organization Address City/[facility]/ZIP Co de Phone Number [address] [address] * (ABNORMAL) Basic metabolic panel (01/26/2020 9:11 AM EDT) SODIUM 140 133 - 146 mmol/L [facility] CHLORIDE 102 96 - 108 mmol/L [facility] POTASSIUM 4.7 3.3 - 5.1 mmol/L [facility] CO2 27 21 - 35 mmol/L [facility] BUN 19 6 - 19 mg/dL [facility] CREATININE 0.70 0.5 - 1.5 mg/dL [facility] GLUCOSE 112(H) 70 - 99 mg/dL [facility] CALCIUM 9.6 8.4 - 10.3 mg/dL [facility] EGFR 92 >59 mL/min/1.7 3m2 [facility] Comment:If patient is black, multiply result by 1.159. Estimated glomerular filtration rate calculated using the CKD-EPI equation. ANION GAP 16 10 - 20 mmol/L [facility] Blood 01/26/2020 9:11 AM EDT 01/26/2020 9:33 AM EDT us Yandel Hightower MD LAB BLOOD ORDERABLES Final Re sult Performing Organization Address City/[facility]/ZIP Co de Phone Number [address] [address] documented in this encounter Visit Diagnoses Diagnosis Essential hypertension, malignant- Primary documented in this encounter Care Teams Desulphurizer Operator Relationship Specialty Start Date End Date Edgardo Krishnan DO [email or web address] PCP - General Internal Medicine 07/29/17 07/08/22 Augustine Wood MD [address] [facility], [address] [place] [address] PCP - General Family Medicine 07/09/22 Edgardo Krishnan DO Historical LMR Provider 06/17/17 Kristal Wheeler NP [address] [place] [address] Historical LMR Provider 06/17/17 2 Willy Juarez MD [address] [place] [address] Historical LMR Provider 06/17/17 Pastora Dee NP [address] [place] [phone] Historical LMR Provider 06/17/17 2 Sophia Pedroza NP [address] [place] [address] [email or web address] Historical LMR Provider 06/17/17 2 Mendoza Atkinson MD [address] [place] [address] Historical LMR Provider 06/17/17 2 Radha Reyes CNP [address] [facility], [address] [place] [address] [email or web address] Historical LMR Provider 06/17/17 Augustine Wood MD [address] [place] [address], [address] [place] [id number] [email or web address] Insurance Assigned Provider 12/07/23 documented as of this encounter Additional Source Comments The information contained in this document represents components of the legal health record. It is not the complete legal health record.[facility]
--- OUTSIDE RECORDS SUMMARY | 2025-07-02 10:29 | XMS_ITS | Encounter Summary ---
Author Organization [facility] Address [address] [address] Phone Care Team Providers Care Printer Helper Name Role Phone Edgardo Krishnan DO Unavailable Kristal Wheeler DEVELOPMENT ENGINEER Unavailable Willy Juarez MD Unavailable Pastora Dee DEVELOPMENT ENGINEER Unavailable Sophia Pedroza DEVELOPMENT ENGINEER Unavailable Mendoza Atkinson MD Unavailable [phone] Radha Reyes CHANNEL SUPERVISOR Unavailable Edgardo Krishnan DO Primary Care Provider [phone] Augustine Wood MD Primary Care Provider [phone] Augustine Wood MD Unavailable [phone] Encounter Details Date Type Department Care Team (Late st Contact Info) Description 05/20/2020 Ancillary Orders Virtual Department [address] [place] [address] Edgardo Krishnan DO [address] [facility] [place] [address] [place] [address] [email or web address] Breast cancer screening by mammogram Social History Tobacco Use Types Packs/Day Years [...] 2:30 PM EDT Office Visit [facility] Family Medicine [address] [place] [address] Augustine Wood MD 22 [facility], [address] [place] [address] [email or web address] documented as of this encounter Results * BI MAMMOGRAM SCREENING WITH TOMOSYNTHESIS WITH CAD (BILATERAL) (08/29/2020 10:23 AM EST) Anatomical Region Laterality Modality Breast Left, Breast Right, Breast Bilateral Bila teral Mammography 08/29/2020 12:5 0 PM EST Impressions 08/29/2020 12:56 PM EST BILATERAL BREASTS: Negative, no evidence of malignancy. Normal interval follow- up is recommended in 12 months. Bi-RADS: BI-RADS CATEGORY: 1 - Negative. DENSITY: There are scattered fibroglandular densities. Narrative 08/29/2020 12:56 PM EST STUDY: Bilateral screening mammography with tomosynthesis and CAD TECHNIQUE: Bilateral full-field digital screening mammography is obtained and read in conjunction with computer-aided detection. Tomosynthesis as well as 2-D C view imaging were obtained. COMPARISON: Comparison made to multiple prior, most recent August 14, 2019, and most remote July 16, 2014. BREAST COMPOSITION: There are scattered areas of fibroglandular density BILATERAL BREASTS: No significant masses, suspicious calcifications or other abnormalities are seen. Procedure Note Nasrin Santamaria MD - 08/29/2020 STUDY: Bilateral screening mammography with tomosynthesis and CAD TECHNIQUE: Bilateral full-field digital screening mammography is obtainedand read in conjunction with computer-aided detection. Tomosynthesis aswell as 2-D C view imaging were obtained. COMPARISON: Comparison made to multiple prior, most recent August, and most remote July 16, 2014. BREAST COMPOSITION: There are scattered areas of fibroglandulardensity BILATERAL BREASTS: No significant masses, suspicious calcifications orother abnormalities are seen. IMPRESSION: BILATERAL BREASTS: Negative, no evidence of malignancy. Normal intervalfollow-up is recommended in 12 months. Bi-RADS: BI-RADS CATEGORY: 1 - Negative. DENSITY: There are scattered fibroglandular densities. us Edgardo Krishnan DO IMG MG EXAMS Final Result documented in this encounter Visit Diagnoses Diagnosis Breast cancer screening by mammogram Breast cancer screening by mammogram documented in this encounter Care Teams Printer Helper Relationship Specialty Start Date End Date Edgardo Krishnan DO PCP - General Internal Medicine 07/29/17 07/08/22 Augustine Wood MD [address] [place] [address], [address] [place] [address] PCP - General Family Medicine 07/09/22 Edgardo Krishnan DO Historical LMR Provider 06/17/17 Kristal Wheeler NP [address] [place] [address] Historical LMR Provider 06/17/17 2 Willy Juarez MD [address] [place] [address] Historical LMR Provider 06/17/17 [place] [address] [place] [phone] Historical LMR Provider 06/17/17 2 Sophia Pedroza NP [address] [place] [address] [email or web address] Historical LMR Provider 06/17/17 2 Mendoza Atkinson MD [address] [place] [address] Historical LMR Provider 06/17/17 2 Radha Reyes CNP [address] [place] [address] [address] [place] [address] Historical LMR Provider 06/17/17 Augustine Wood MD [address] [place] [address], [address] [place] [address] Insurance Assigned Provider 12/07/23 documented as of this encounter Additional Source Comments The information contained in this document represents components of the legal health record. It is not the complete legal health record.[facility]
--- OUTSIDE RECORDS SUMMARY | 2025-07-02 10:29 | XMS_ITS | Encounter Summary ---
Author Organization [facility] Address [address] [facility] [address] [place] [address] Phone Care Team Providers Care Associate Financial Analyst Name Role Phone Edgardo Krishnan Unavailable Kristal Wheeler VOLUNTEER COORDINATOR Unavailable [phone] Willy Juarez MD Unavailable Pastora Dee VOLUNTEER COORDINATOR Unavailable [phone] Sophia Pedroza VOLUNTEER COORDINATOR Unavailable Mendoza Atkinson MD Unavailable [phone] Radha Reyes MARBLE INSTALLER SUPERVISOR Unavailable [phone] Pcp, Unknown Primary Care Provider Unavailabl e Edgardo Krishnan Primary Care Provider [phone] Augustine Wood MD Primary Care Provider [phone] Augustine Wood MD Unavailable [phone] Encounter Details Date Type Department Care Team (Late st Contact Info) Description 06/22/2017 Ancillary Orders [facility] [address] [place] [address] Mendoza Atkinson MD [address] [place] [address] Visit for screening mammogram Social History Tobacco Use Types Packs/Day [...] Description 04/13/2026 2:30 PM EDT Office Visit [address] [place] [address] Augustine Wood MD 22 [facility], [address] [place] [address] documented as of this encounter Results * BI MAMMOGRAM SCREENING WITH TOMOSYNTHESIS WITH CAD (BILATERAL) (07/29/2017 12:40 PM EST) Anatomical Region Laterality Modality Breast Left, Breast Right, Breast Bilateral Bila teral Mammography 07/29/2017 4:55 PM EST Impressions 07/29/2017 4:58 PM EST No mammographic signs of malignancy. Annual screening is recommended. BI-RADS CATEGORY: 1 - Negative. DENSITY: The breast tissue is heterogeneously dense, an appearance which lowers the sensitivity of mammography. POS - [id number] Narrative 07/29/2017 4:58 PM EST Bilateral mammography is performed in conjunction with computed aided detection. 3-D tomography along with 2-D C view imaging was also performed. Comparison made to previous dated as far back as 07/03/2011 and is recent as 07/23/2016. Breasts are composed of heterogeneously dense fibroglandular tissue somewhat limiting the sensitivity of mammography. No suspicious masses, areas of architectural distortion or microcalcifications. Procedure Note Angel Sloan MD - 07/29/2017 Bilateral mammography is performed in conjunction with computed aideddetection. 3-D tomography along with 2-D C view imaging was alsoperformed. Comparison made to previous dated as far back as 07/03/2011 andis recent as 07/23/2016. Breasts are composed of heterogeneously dense fibroglandular tissuesomewhat limiting the sensitivity of mammography. No suspicious masses, areas of architectural distortion ormicrocalcifications. IMPRESSION: No mammographic signs of malignancy. Annual screening is recommended. BI-RADS CATEGORY: 1 - Negative. DENSITY: The breast tissue is heterogeneously dense, an appearance whichlowers the sensitivity of mammography. POS - [id number] Mendoza Atkinson MD IMG MG EXAMS Final Result documented in this encounter Visit Diagnoses Diagnosis Visit for screening mammogram Visit for screening mammogram documented in this encounter Care Teams Associate Financial Analyst Relationship Specialty Start Date End Date Pcp, Unknown PCP - General 06/22/17 07/28/17 Edgardo Krishnan DO PCP - General Internal Medicine 07/29/17 07/08/22 Augustine Wood MD [address] [place] [address], [address] [place] [address] PCP - General Family Medicine 07/09/22 Edgardo Krishnan DO Historical LMR Provider 06/17/17 Kristal Wheeler NP [address] [place] [address] Historical LMR Provider 06/17/17 2 Willy Juarez MD [address] [place] [address] Historical LMR Provider 06/17/17 Pastora Dee NP [address] [place] [phone] Historical LMR Provider 06/17/17 2 Sophia Pedroza NP [address] [place] [address] [email or web address] Historical LMR Provider 06/17/17 2 Mendoza Atkinson MD [address] [place] [address] Historical LMR Provider 06/17/17 2 Radha Reyes CNP [address] [place] [address], [address] [place] [address] Historical LMR Provider 06/17/17 Augustine Wood MD [address] [place] [address], [address] [place] [address] Insurance Assigned Provider 12/07/23 documented as of this encounter Additional Source Comments The information contained in this document represents components of the legal health record. It is not the complete legal health record.[facility]
--- OUTSIDE RECORDS SUMMARY | 2025-07-02 10:29 | XMS_ITS | Encounter Summary ---
Author Organization [facility] Address [address] [facility] [address] [place] [address] Phone Care Team Providers Care Flame Annealing Machine Operator Name Role Phone Edgardo Krishnan DO Unavailable Edgardo Krishnan DO Primary Care Provider [phone] Augustine Wood MD Primary Care Provider [phone] Augustine Wood MD Unavailable [phone] Encounter Details Date Type Department Care Team (Late st Contact Info) Description 09/18/2021 Transcribe Orders Virtual Department [address] [place] [address] Yandel Hightower MD [address] [place] [address], [address] [place] [address] [email or web address] Social History Tobacco Use Types Packs/Day Years Used Date Smoking Tobacco: Never Smokeless Tobacco: Never Alcohol Use Standard Drinks/Week Comments Yes 0 (1 standard drink = 0.6 oz pur e alcohol) once a month/socially Comments No Sex and Gender Information Value [...] Description 04/13/2026 2:30 PM EDT Office Visit [facility] [address] [place] [address] Augustine Wood MD [address] [place] [address], [address] [place] [address] documented as of this encounter Visit Diagnoses Not on filedocumented in this encounter Care Teams Flame Annealing Machine Operator Relationship Specialty Start Date End Date Edgardo Krishnan DO PCP - General Internal Medicine 07/29/17 07/08/22 Augustine Wood MD [address] [place] [address], [address] [place] [address] PCP - General Family Medicine 07/09/22 Edgardo Krishnan DO Historical LMR Provider 06/17/17 Augustine Wood MD [address] [place] [address], [address] [place] [address] Insurance Assigned Provider 12/07/23 documented as of this encounter Additional Source Comments The information contained in this document represents components of the legal health record. It is not the complete legal health record.[facility]
--- OUTSIDE RECORDS SUMMARY | 2025-07-02 10:29 | XMS_ITS | Encounter Summary ---
Author Organization [facility] Address [address] [place] [address] [place] [address] Phone Care Team Providers Care Yarn Dry Room Worker Name Role Phone Edgardo Krishnan Lobo ROBLES Unavailable Kristal Wheeler UPPER TIER Unavailable Willy Juarez MD Unavailable Pastora Dee UPPER TIER Unavailable [phone] Sophia Pedroza UPPER TIER Unavailable Mendoza Atkinson MD Unavailable [phone] Radha Reyes SOCIAL AND HUMAN SERVICES ASSISTANT Unavailable Eulogio Edgardo Lobo Primary Care Provider [phone] Augustine Wood MD Primary Care Provider + [phone] Augustine Wood MD Unavailable [phone] Encounter Details Date Type Department Care Team (Late st Contact Info) Description 08/19/2017 Ancillary Orders Non-Invasive Cardiology [address] [place] [address] Zuleima Lay SOCIAL AND HUMAN SERVICES ASSISTANT [address] [place], [place] [id number] BLANC (dyspnea on exertion); Pre-syncope; Hypertension, unspecified [...] Description 04/13/2026 2:30 PM EDT Office Visit [address] [place] [address] Augustine Wood MD [address] [facility], [address] [place] [address] [email or web address] documented as of this encounter Results * NC Stress Result for Nuclear Stress Test (NWH) (08/19/2017 11:16 AM EST) Max BP Systolic 170 mmHg [facility] Max BP Diastolic 60 mmHg [facility] Max HR 173 BPM [facility] Resting HR 88 BPM [facility] Resting BP Systolic 130 mmHg [facility] Resting BP Diastolic 80 mmHg [facility] Peak METS 14.8 METS [facility] Peak HR 171 BPM [facility] Anatomical Region Laterality Modality Heart Other 08/19/2017 10:5 8 AM EST 08/19/2017 11:16 AM EST Narrative 08/19/2017 12:15 PM EST Stress Test Result The heart rate changed from 88 bpm at rest to 171 bpm at peak stress. The blood pressure changed from 130/80 mmHg at rest. The patient's functional capacity is 14.8 METS. Pt exercised for 12:23 minutes on a JEET protocol achieving 14.8 METS. TEst terminated due to fatigue. Max heart rate 173 (108% MPHR). 1. No ischemic EKG changes with exercise. 2. No chest pain. 3. Normal BP response to exercise. Excellent functional capacity for age. 4. Few PVCs and PACs. Conclusion - normal stress test. Nuclear images pending and will be reported separately. Mich aJcobson NP us Zuleima Lay SOCIAL AND HUMAN SERVICES ASSISTANT CV NM CARDIAC Final Resul t documented in this encounter Visit Diagnoses Diagnosis BLANC (dyspnea on exertion) Other dyspnea and respiratory abnormality Pre-syncope Syncope and collapse Hypertension, unspecified type BLANC (dyspnea on exertion) Other dyspnea and respiratory abnormality Pre-syncope Syncope and collapse Hypertension, unspecified type documented in this encounter Care Teams Yarn Dry Room Worker Relationship Specialty Start Date End Date Edgardo Krishnan DO PCP - General Internal Medicine 07/29/17 07/08/22 Augustine Wood MD [address] [place] [address], [address] [place] [address] PCP - General Family Medicine 07/09/22 Edgardo Krishnan DO Historical LMR Provider 06/17/17 Kristal Wheeler NP [address] [place] [address] Historical LMR Provider 06/17/17 2 Willy Juarez MD [address] [place] [address] Historical LMR Provider 06/17/17 Pastora Dee NP [address] [place] [phone] Historical LMR Provider 06/17/17 2 Sophia Pedroza UPPER TIER [address] [place] [address] [email or web address] Historical LMR Provider 06/17/17 2 Mendoza Atkinson MD [address] [place] [address] Historical LMR Provider 06/17/17 2 Radha Reyes CNP [address] [place] [address], [address] [place] [address] [email or web address] Historical LMR Provider 06/17/17 Augustine Wood MD [address] [place] [address], [address] [place] [address] [email or web address] Insurance Assigned Provider 12/07/23 documented as of this encounter Additional Source Comments The information contained in this document represents components of the legal health record. It is not the complete legal health record.[facility]
--- OUTSIDE RECORDS SUMMARY | 2025-07-02 10:29 | XMS_ITS | Encounter Summary ---
Author Organization [facility] Address [address] [place] [address] Phone Care Team Providers Care Extruding Department Supervisor Name Role Phone Edgrado Krishnan Lobo ROBLES Unavailable Kristal Wheeler SLEEVE BASTER Unavailable Willy Juarez MD Unavailable Pastora Dee SLEEVE BASTER Unavailable [phone] Sophia Pedroza SLEEVE BASTER Unavailable Mendoza Atkinson MD Unavailable [phone] Radha Reyes CATALYST SUPERVISOR Unavailable Edgardo Krishnan Primary Care Provider [phone] Augustine Wood MD Primary Care Provider + [phone] uAgustine Wood MD Unavailable [phone] Encounter Details Date Type Department Care Team (Latest Contact Info) Description 08/22/2017 Transcribe Orders [facility] [address] [place] [address] Zuleima Lay CATALYST SUPERVISOR [address] [place] [address] [id number] SOB (shortness of breath) on exertion (Primary Dx); Encounter for hydration prior to CT scan Social History Tobacco Use Types Packs/Day Years [...] Description 04/13/2026 2:30 PM EDT Office Visit [facility] [address] [place] [address] Augustine Wood MD 22 [facility], [address] [place] [address] [email or web address] documented as of this encounter Results * (ABNORMAL) Basic metabolic panel (08/22/2017 8:49 AM EST) SODIUM 140 133 - 146 mmol/L [facility] CHLORIDE 99 96 - 108 mmol/L [facility] POTASSIUM 5.0 3.3 - 5.1 mmol/L [facility] CO2 33 21 - 35 mmol/L [facility] BUN 20(H) 6 - 19 mg/dL [facility] CREATININE 0.90 0.5 - 1.5 mg/dL [facility] GLUCOSE 103(H) 70 - 99 mg/dL [facility] CALCIUM 9.6 8.4 - 10.3 mg/dL [facility] EGFR >60 60 - 1000 mL/min/1.7 3m2 [facility] Comment:Abnormal if <60. If patient is -Malawian, multiply the result by 1.21. ANION GAP 13 10 - 20 mmol/L [facility] Blood 08/22/2017 8:49 AM EST 08/22/2017 10:01 AM EST us Zuleima Lay CATALYST SUPERVISOR LAB BLOOD ORDERABLES Final Result [facility] [address] [place] [address] documented in this encounter Visit Diagnoses Diagnosis SOB (shortness of breath) on exertion- Primary Shortness of breath Encounter for hydration prior to CT scan documented in this encounter Care Teams Extruding Department Supervisor Relationship Specialty Start Date End Date Edgardo Krishnan DO PCP - General Internal Medicine 07/29/17 07/08/22 Augustine Wood MD [address] [place] [address], [address] [place] [address] PCP - General Family Medicine 07/09/22 Edgardo Krishnan DO Historical LMR Provider 06/17/17 Kristal Wheeler NP [address] [place] [address] Historical LMR Provider 06/17/17 2 Willy Juarez MD [address] [place] [address] Historical LMR Provider 06/17/17 Pastora Dee NP [address] [place] [phone] Historical LMR Provider 06/17/17 2 Sophia Pedroza NP [address] [place] [address] [email or web address] Historical LMR Provider 06/17/17 2 Mendoza Atkinson MD [address] [place] [address] Historical LMR Provider 06/17/17 2 Radha Reyes CNP 22 [facility], [address] [place] [address] [email or web address] Historical LMR Provider 06/17/17 Augustine Wood MD 22 [facility], [address] [place] [address] [email or web address] Insurance Assigned Provider 12/07/23 documented as of this encounter Additional Source Comments The information contained in this document represents components of the legal health record. It is not the complete legal health record.[facility]
--- OUTSIDE RECORDS SUMMARY | 2025-07-02 10:29 | XMS_ITS | Encounter Summary ---
Author Organization [facility] Address [address] [facility] [address] [place] [address] Phone Care Team Providers Care Laboratory Development Technician Name Role Phone Farzanaebony Edgardo Diamond DO Unavailable Kristal Wheeler TECHNICAL WRITER Unavailable [phone] Willy Juarez MD Unavailable Pastora Dee TECHNICAL WRITER Unavailable [phone] Sophia Pedroza TECHNICAL WRITER Unavailable Mendoza Atkinson MD Unavailable [phone] Radha Reyes SENIOR LOSS CONTROL SPECIALIST Unavailable [phone] Edgardo Krishnan DO Primary Care Provider [phone] Augustine Wood MD Primary Care Provider + [phone] Augustine Wood MD Unavailable [phone] Encounter Details Date Type Department Care Team (Late st Contact Info) Description 05/31/2021 Procedure Pass [facility], [facility] [address] [place] [address] Social History Tobacco Use Types Packs/Day Years [...] Description 04/13/2026 2:30 PM EDT Office Visit [address] [address] Augustine Wood MD [address] [place] [address], [address] [place] [address] documented as of this encounter Visit Diagnoses Not on filedocumented in this encounter Care Teams Laboratory Development Technician Relationship Specialty Start Date End Date Edgardo Krishnan DO PCP - General Internal Medicine 07/29/17 07/08/22 Augustine Wood MD [address] [place] [address], [address] [place] [address] PCP - General Family Medicine 07/09/22 Edgardo Krishnan DO Historical LMR Provider 06/17/17 Kristal Wheeler NP [address] [place] [address] Historical LMR Provider 06/17/17 Willy Epps MD [address] [place] [address] Historical LMR Provider 06/17/17 Pastora Dee NP [address] [place] [phone] Historical LMR Provider 06/17/17 2 Sophia Pedroza NP [address] [place] [address] [email or web address] Historical LMR Provider 06/17/17 2 Mendoza Atkinson MD [address] [place] [address] Historical LMR Provider 06/17/17 2 Radha Reyes CNP [address] [place] [address], [address] [place] [address] Historical LMR Provider 06/17/17 Augustine Wood MD [address] [place] [address], [address] [place] [address] Insurance Assigned Provider 12/07/23 documented as of this encounter Additional Source Comments The information contained in this document represents components of the legal health record. It is not the complete legal health record.[facility]
--- OUTSIDE RECORDS SUMMARY | 2025-07-02 10:29 | XMS_ITS | Encounter Summary ---
Author Organization [facility] Address [address] [facility] [address] [place] [address] Phone Care Team Providers Care Threat Analyst Name Role Phone Edgardo Krishnan DO Unavailable Edgardo Krishnan DO Primary Care Provider [phone] Augustine Wood MD Primary Care Provider + [phone] Augustine Wood MD Unavailable [phone] Encounter Details Date Type Department Care Team (Late st Contact Info) Description 06/05/2022 Procedure Pass [address] [id number] Social History Tobacco Use Types Packs/Day Years Used Date Smoking Tobacco: Never Smokeless Tobacco: Never Alcohol Use Standard Drinks/Week Comments Yes 0 (1 standard drink = 0.6 oz pur e alcohol) Very occasional Comments No Sex and Gender Information Value [...] Description 04/13/2026 2:30 PM EDT Office Visit [address] [place] [address] Augustine Wood MD 22 [facility], [address] [place] [address] [email or web address] documented as of this encounter Visit Diagnoses Not on filedocumented in this encounter Additional Health Concerns Assessment Noted Time PHQ-2 Depression Total Score: 0 07/06/20 22 12:07 PM EDT documented as of this encounter Care Teams Threat Analyst Relationship Specialty Start Date End Date Edgardo Krishnan DO [email or web address] PCP - General Internal Medicine 07/29/17 07/08/22 Augustine Wood MD [address] [place] [address], [address] [place] [address] [email or web address] PCP - General Family Medicine 07/09/22 Edgardo Krishnan DO [email or web address] Historical LMR Provider 06/17/17 Augustine Wood MD [address] [place] [address], [address] [place] [address] Insurance Assigned Provider 12/07/23 documented as of this encounter Additional Source Comments The information contained in this document represents components of the legal health record. It is not the complete legal health record.[facility]
--- OUTSIDE RECORDS SUMMARY | 2025-07-02 10:29 | XMS_ITS | Patient Health Record ---
Author Organization [facility] Address [address] [place] [address] Care Team Providers Care Platform Software Engineer Name Role Phone Edgardo Krishnan MD Primary Care Provider Bryn Malin Unavailable [phone] Allergies Allergen (clinical drug ingredient) Drug/Non Drug Allergy documented on EMR Reaction Allergy Type Onset Date Status Aleve hives Drug Allergy Active meperidine Demerol vomit Drug Allergy Active lisinopril Lisinopril cough Drug Allergy Activ e metronidazole Metronidazole feet/hands burn, hives Drug Allergy Active medroxyprogesterone Provera hives Drug Allergy Active codeine Codeine vomit Drug Allergy Active Reason For Referral No Information Medications Medication SIG (Take, Route, Frequency, Duration) Notes Start Date End Date Status Zantac 150 Maximum Strength 150 MG 1 tablet at bedtime Orally Once a day Not-Taking Benicar 5 MG 1 tablet Orally Once a day; Duration: 30 day(s) Active BiomePro Active Enzyme Active Glucosamine Chond Complex/MSM - Orally Active Metoprolol Succinate Active Multivitamins Active Turmeric Active Losartan Potassium 25 MG 1 tablet Orally Once a day Not-Taking Propranolol HCl ER 60 MG 1 capsule Orall y Once a day Not-Taking Probiotic Mature Adult - Orally Not-Taking Immunizations Vaccine Route Administration Date Status Comme nts COVID-19 Pfizer BioNTech Vaccine Unknown 07/02/2021 Adm inistered Social History Tobacco Use: Social History Observation Description Date Details (start date - stop date) Never Smoker NA - NA Tobacco Use/Smoking Question Answer Notes Are you a: nonsmoker Additional Findings: Tobacco Non-User Current no n-smoker Alcohol Screen Question Answer Notes Did you have a drink contain ing alcohol in the past year? Yes How often did you have a dri nk containing alcohol in the past year? Monthly or less (1 point) Points 1 Interpretation Negative Tobacco use other than smoking: Question Answer Notes Are you an other tobacco user? No Plan Of Treatment Pending Test Test Name Order Date X ray : Foot, left 3V 06/02/2018 X ray : Foot, right 3V 11/20/2021 Insurance Providers Payer Name Payer Address Payer Phone Subscriber Number Group Number Insured Name Patient Relationship to Insured Coverage Start Date Coverage End Date Medicare National Govt [employer] [address] [place] [address] [id number] Erma Puckett i Self - patient is the insured [employer]) [address] [place] [address] [id number] Erma Puckett i Self - patient is the insured Medical (General) History Medical History History ICD Code Arthritis Chicken pox High blood pressure Irritable bowel syndrome Measles Mumps Reflux ( GERD) Surgical History Surgery Date(Month/Year) appendectomy 1976 tonsillectomy 1989 cholecystectomy 1998 fibroids/uterus 2001 skin graft right little finger 2002 left wrist pisiform bone removal 2016 left hip lipoma 2018 cyst removal from finger 1994
--- OUTSIDE RECORDS SUMMARY | 2025-07-02 10:29 | XMS_ITS | Encounter Summary ---
Author Organization [facility] Address [address] [facility] [address] [place] [address] Phone Care Team Providers Care Mechanical Engineering Draftsperson Name Role Phone Edgardo Krishnan Lobo ROBLES Unavailable Kristal Wheeler HAIR BOILER OPERATOR Unavailable Willy Juarez MD Unavailable Pastora Dee HAIR BOILER OPERATOR Unavailable [phone] Sophia Pedroza HAIR BOILER OPERATOR Unavailable Mendoza Atkinson MD Unavailable [phone] Radha Reyes MARINE ELECTRONICS TECHNICIAN Unavailable Eulogio Edgardo Lobo Primary Care Provider [phone] Augustine Wood MD Primary Care Provider + [phone] Augustine Wood MD Unavailable [phone] Encounter Details Date Type Department Care Team (Late st Contact Info) Description 08/14/2017 Ancillary Orders [facility], X-Ray - [facility] [address] [place] [address] Zuleima Lay MARINE ELECTRONICS TECHNICIAN [address] [place] [address] [email or web address] Other fatigue Social History Tobacco Use Types Packs/Day Years [...] Description 04/13/2026 2:30 PM EDT Office Visit [address] [place] [address] Augustine Wood MD 22 [facility], [address] [place] [address] [email or web address] documented as of this encounter Results * XR CHEST PA AND LATERAL 2 VIEWS (08/14/2017 3:15 PM EST) Anatomical Region Laterality Modality Chest Radiographic Carole ging 08/14/2017 3:43 PM EST Impressions 08/14/2017 3:44 PM EST Possible small left upper lobe nodule which could represent summation artifact. Follow-up apical lordotic and oblique views would be recommended for further evaluation. COPD without other active cardiopulmonary abnormality suggested. Scoliosis. POS [id number] Narrative 08/14/2017 3:44 PM EST COMPARISON: None FINDINGS: A PA and lateral views reveal the lungs to be slightly hypoinflated with prominence of the retrosternal airspace. There is a small vague parenchymal opacity overlying the left anterior second and posterior fourth ribs on the frontal view. No focal airspace infiltrate or pleural effusion are detected. Heart and pulmonary vessels are within normal limits in size. Visualized bony thorax is intact with a right convex scoliotic curvature present. Procedure Note Corrine Flor MD - 08/14/2017 COMPARISON: None FINDINGS: A PA and lateral views reveal the lungs to be slightly hypoinflated withprominence of the retrosternal airspace. There is a small vagueparenchymal opacity overlying the left anterior second and posteriorfourth ribs on the frontal view. No focal airspace infiltrate or pleuraleffusion are detected. Heart and pulmonary vessels are within normallimits in size. Visualized bony thorax is intact with a right convexscoliotic curvature present. IMPRESSION: Possible small left upper lobe nodule which could represent summationartifact. Follow-up apical lordotic and oblique views would berecommended for further evaluation. COPD without other active cardiopulmonary abnormality suggested.Scoliosis. POS [id number] Zuleima Lay MARINE ELECTRONICS TECHNICIAN IMG XR CHEST Final Resul t documented in this encounter Visit Diagnoses Diagnosis Other fatigue Other fatigue documented in this encounter Care Teams Mechanical Engineering Draftsperson Relationship Specialty Start Date End Date Edgardo Krishnan DO PCP - General Internal Medicine 07/29/17 07/08/22 Augustine Wood MD [address] [place] [address], [address] [place] [address] PCP - General Family Medicine 07/09/22 Edgardo Krishnan DO Historical LMR Provider 06/17/17 Kristal Wheeler NP [address] [place] [address] Historical LMR Provider 06/17/17 2 Willy Juarez MD [address] [place] [address] Historical LMR Provider 06/17/17 Pastora Dee NP [address] [place] [phone] Historical LMR Provider 06/17/17 2 Sophia Pedroza NP [address] [place] [address] [email or web address] Historical LMR Provider 06/17/17 2 Mendoza Atkinson MD [address] [place] [address] Historical LMR Provider 06/17/17 2 Radha Reyes CNP [address] [place] [address], [address] [place] [address] Historical LMR Provider 06/17/17 Augustine Wood MD [address] [place] [address], [address] [place] [address] [email or web address] Insurance Assigned Provider 12/07/23 documented as of this encounter Additional Source Comments The information contained in this document represents components of the legal health record. It is not the complete legal health record.[facility]
--- OUTSIDE RECORDS SUMMARY | 2025-07-02 10:29 | XMS_ITS | Encounter Summary ---
Author Organization [facility] Address [address] [facility] [address] [place] [address] Phone Care Team Providers Care Security Intern Name Role Phone Farzanaebony Edgardo Diamond DO Unavailable Kristal Wheeler DELIVERY STOCK CLERK Unavailable Willy Juarez MD Unavailable Pastora Dee DELIVERY STOCK CLERK Unavailable [phone] Sophia Pedroza DELIVERY STOCK CLERK Unavailable Mendoza Atkinson MD Unavailable [phone] Radha Reyes INCIDENT COMMANDER Unavailable [phone] Edgardo Krishnan DO Primary Care Provider [phone] Augustine Wood MD Primary Care Provider + [phone] Augustine Wood MD Unavailable [phone] Encounter Details Date Type Department Care Team (Late st Contact Info) Description 05/20/2020 Procedure Pass [facility], [facility] [address] [place] [address] Social History Tobacco Use Types Packs/Day Years [...] 04/13/2026 2:30 PM EDT Office Visit [address] [address] Augustine Wood MD [address] [place] [address], [address] [place] [address] documented as of this encounter Visit Diagnoses Not on filedocumented in this encounter Care Teams Security Intern Relationship Specialty Start Date End Date Edgardo Krishnan DO PCP - General Internal Medicine 07/29/17 07/08/22 Augustine Wood MD [address] [place] [address], [address] [place] [address] PCP - General Family Medicine 07/09/22 Edgardo Krishnan DO Historical LMR Provider 06/17/17 Kristal Wheeler NP [address] [place] [address] Historical LMR Provider 06/17/17 Willy Epps MD [address] [place] [address] Historical LMR Provider 06/17/17 Pastora Dee NP [address] [place] [phone] Historical LMR Provider 06/17/17 2 Sophia Pedroza NP [address] [place] [address] [email or web address] Historical LMR Provider 06/17/17 2 Mendoza Atkinson MD [address] [place] [address] Historical LMR Provider 06/17/17 2 Radha Reyes CNP [address] [place] [address], [address] [place] [address] Historical LMR Provider 06/17/17 Augustine Wood MD [address] [place] [address], [address] [place] [address] Insurance Assigned Provider 12/07/23 documented as of this encounter Additional Source Comments The information contained in this document represents components of the legal health record. It is not the complete legal health record.[facility]
--- OUTSIDE RECORDS SUMMARY | 2025-07-02 10:29 | XMS_ITS | Encounter Summary ---
Author Organization [facility] Address [address] [facility] [address] [place] [address] Phone Care Team Providers Care Grounds Keeper Name Role Phone Edgardo Krishnan Lobo ROBLES Unavailable Kristal Wheeler AIRWORTHINESS INSPECTOR Unavailable [phone] Willy Juarez MD Unavailable Pastora Dee AIRWORTHINESS INSPECTOR Unavailable [phone] Sophia Pedroza AIRWORTHINESS INSPECTOR Unavailable Mendoza Atkinson MD Unavailable [phone] Radha Reyes PRODUCTION EDITOR Unavailable Edgardo Krishnan Primary Care Provider [phone] Augustine Wood MD Primary Care Provider [phone] Augustine Wood MD Unavailable [phone] Encounter Details Date Type Department Care Team (Latest Contact Info) Description 07/31/2017 Transcribe Orders [facility] [address] [place] [address] Yandel Hightower MD [address] [facility], [address] [employer], [place] [id number] [email or web address] Essential hypertension, benign (Primary Dx); Shortness of breath Social History Tobacco Use Types Packs/Day Years [...] 04/13/2026 2:30 PM EDT Office Visit [facility] [address] [place] [address] Augustine Wood MD [address] [facility], [address] [place] [address] [email or web address] documented as of this encounter Results * Holter Monitor 24 Hours (08/21/2017 9:31 AM EST) Total Beats 106,100 [facility] Ventricular Ectopy Total Beats 49 [facility] Ventricular Ectopy Single Beats 47 [facility] Ventricular Pair 1 [facility] Ventricular Runs 0 [facility] Supraventricular Total Beats 445 [facility] Supraventricular Ectopic Single Beats 430 [facility] Supraventricular Pairs 6 [facility] Supraventricular Runs 1 [facility] Supraventricular Longest Run 3 [facility] Longest Supraventricular Run Rate 95 BPM [facility] Fastest Supraventricular Run Rate 95 BPM [facility] PHS CV HOLTER SUPRAVENTRICULAR FASTEST RUN 3 [facility] Mean Heart Rate 75 BPM [facility] Maximum Heart Rate 126 BPM [facility] Minimum Heart Rate 53 BPM [facility] Longest RR 1.568 S [facility] Anatomical Region Laterality Modality Heart Other 08/19/2017 12:0 4 PM EST 08/21/2017 10:49 AM EST Narrative 08/21/2017 3:08 PM EST The underlying rhythm is a normal sinus rhythm with an average heart rate of 75 bpm, minimum heart rate 53 beats her minute maximum heart rate 126 bpm. There are rare isolated PVCs. The patient was in ventricular bigeminy 421 beats. There are rare premature atrial contractions and one 3 beat run of an atrial tachycardia. There are no sustained tachyarrhythmias Symptoms may have correlated with premature atrial contractions, ventricular bigeminy but some time did not correlate with any abnormality. Conclusion: Abnormal Holter monitor showing ventricular bigeminy and premature atrial contractions. Zuleima Lay PRODUCTION EDITOR CV CARDI[facility] ORDERAB LES Final Result * Free T4 (07/31/2017 8:00 AM EST) FREE T4 1.2 0.9 - 1.7 ng/dL [facility] Blood 07/31/2017 8:00 AM EST 07/31/2017 8:05 AM EST Yandel Hightower MD LAB BLOOD ORDERABLES Final Re sult Performing Organization Address [facility] Co de Phone Number [address] [address] * TSH (07/31/2017 8:00 AM EST) TSH 2.48 0.27 - 4.20 uIU/mL [facility] Blood 07/31/2017 8:00 AM EST 07/31/2017 8:05 AM EST Yandel Hightower MD LAB BLOOD ORDERABLES Final Re sult Performing Organization Address [facility] Co de Phone Number [address] [address] * Total protein creatinine ratio, random urine (07/31/2017 8:00 AM EST) URINE TOTAL PROTEIN 4.3 mg/dL [facility] URINE CREATININE 58 mg/dL [facility] URINE TP CRE RATIO 0.07 0 - 0.19 [facility] Urine (Urine) 07/31/2017 8:0 0 AM EST 07/31/2017 8:06 AM EST Yandel Hightower MD URINE ORDERABLES Final Result Performing Organization Address [facility] Co de Phone Number [address] [address] * Albumin (07/31/2017 8:00 AM EST) ALBUMIN 4.2 3.9 - 4.8 g/dL [facility] Blood 07/31/2017 8:00 AM EST 07/31/2017 8:05 AM EST us Yandel Hightower MD LAB BLOOD ORDERABLES Final Re sult Performing Organization Address City/[facility]/ZIP Co de Phone Number [address] [address] * Magnesium (07/31/2017 8:00 AM EST) MAGNESIUM 2.1 1.6 - 2.6 mg/dL [facility] Blood 07/31/2017 8:00 AM EST 07/31/2017 8:05 AM EST us Yandel Hightower MD LAB BLOOD ORDERABLES Final Re sult Performing Organization Address [facility]/ZIP Co de Phone Number [address] [address] * Phosphorus (07/31/2017 8:00 AM EST) PHOSPHORUS 3.2 2.7 - 4.5 mg/dL [facility] Blood 07/31/2017 8:00 AM EST 07/31/2017 8:05 AM EST Yandel Hightower MD LAB BLOOD ORDERABLES Final Re sult Performing Organization Address [facility] Co de Phone Number [address] [address] * Basic metabolic panel (07/31/2017 8:00 AM EST) SODIUM 140 133 - 146 mmol/L [facility] CHLORIDE 99 96 - 108 mmol/L [facility] POTASSIUM 4.8 3.3 - 5.1 mmol/L [facility] CO2 31 21 - 35 mmol/L [facility] BUN 18 6 - 19 mg/dL [facility] CREATININE 0.80 0.5 - 1.5 mg/dL [facility] GLUCOSE 96 70 - 99 mg/dL [facility] CALCIUM 9.7 8.4 - 10.3 mg/dL [facility] EGFR >60 >60 mL/min/1.7 3m2 [facility] Comment:Abnormal if <60. If patient is -Polish, multiply the result by 1.21. ANION GAP 15 10 - 20 mmol/L [facility] Blood 07/31/2017 8:00 AM EST 07/31/2017 8:05 AM EST us Yandel Hightower MD LAB BLOOD ORDERABLES Final Re sult Performing Organization Address City/State/[facility] Co de Phone Number [facility] [address] [place] [address] documented in this encounter Visit Diagnoses Diagnosis Essential hypertension, benign- Primary Shortness of breath Essential hypertension, benign Shortness of breath documented in this encounter Care Teams Grounds Keeper Relationship Specialty Start Date End Date Edgardo Krishnan DO PCP - General Internal Medicine 07/29/17 07/08/22 Augustine Wood MD [address] [place] [address], [address] [place] [address] PCP - General Family Medicine 07/09/22 Edgardo Krishnan DO Historical LMR Provider 06/17/17 Kristal Wheeler NP [address] [place] [address] Historical LMR Provider 06/17/17 2 Willy Juarez MD [address] [place] [address] Historical LMR Provider 06/17/17 Pastora Dee NP [address] [place] [address] Historical LMR Provider 06/17/17 2 Sophia Pedroza NP [address] [place] [address] [email or web address] Historical LMR Provider 06/17/17 2 Mendoza Atkinson MD [address] [place] [address] Historical LMR Provider 06/17/17 2 Radha Reyes CNP [address] [facility], [address] [place] [address] Historical LMR Provider 06/17/17 Augustine Wood MD [address] [facility], [address] [place] [address] Insurance Assigned Provider 12/07/23 documented as of this encounter Additional Source Comments The information contained in this document represents components of the legal health record. It is not the complete legal health record.[facility]
--- OUTSIDE RECORDS SUMMARY | 2025-07-02 10:29 | XMS_ITS | Encounter Summary ---
Author Organization [facility] Address [address] [facility] [address] [place] [address] Phone Care Team Providers Care Timber Appraiser Name Role Phone Edgardo Krishnan DO Unavailable Augustine Wood MD Primary Care Provider [phone] Augustine Wood MD Unavailable [phone] Encounter Details Date Type Department Care Team (Late st Contact Info) Description 06/11/2024 Procedure Pass [facility], [address] [address] Social History Tobacco Use Types Packs/Day Years [...] high school, GED, job training, learning the Welsh language, technical skills, or developing parenting skills)? [...] ecorded Denied Basic Needs Not on file 01/09/2024 In the past 12 months have y ou been in a relationship with a person who hurts, threatens, or tries to control you? No 01/09/2024 Worried food would run out Not on file 01/08 In the past 12 months have y ou been in a relationship with a person who hurts, threatens, or tries to control you? No 01/09/2024 Comments No Sex and Gender Information Value [...] Description 04/13/2026 2:30 PM EDT Office Visit [facility] [address] [place] [address] [place] [address] Augustine Wood MD [address] [facility], [address] [place] [address] documented as of this encounter Visit Diagnoses Not on filedocumented in this encounter Additional Health Concerns Assessment Noted Time PHQ-2 Depression Total Score: 0 01/09/20 24 12:24 PM EDT documented as of this encounter Care Teams Timber Appraiser Relationship Specialty Start Date End Date Augustine Wood MD [address] [place] [address], [address] [place] [address] PCP - General Family Medicine 07/09/22 Edgardo Krishnan DO Historical LMR Provider 06/17/17 Augustine Wood MD [address] [place] [address], [address] [place] [address] Insurance Assigned Provider 12/07/23 documented as of this encounter Additional Source Comments The information contained in this document represents components of the legal health record. It is not the complete legal health record.[facility]
--- OUTSIDE RECORDS SUMMARY | 2025-07-02 10:29 | XMS_ITS | Encounter Summary ---
Author Organization [facility] Address [address] [place] [address] [place] [address] Phone Care Team Providers Care Appeals Manager Name Role Phone Farzanaebony Edgardo Diamond DO Unavailable Kristal Wheeler HYDROELECTRIC POWERPLANT SUPERVISOR Unavailable [phone] Willy Juarez MD Unavailable Pastora Dee HYDROELECTRIC POWERPLANT SUPERVISOR Unavailable [phone] Sophia Pedroza HYDROELECTRIC POWERPLANT SUPERVISOR Unavailable Mendoza Atkinson MD Unavailable [phone] Radha Reyes [employer] OFFICER Unavailable Edgardo Krishnan DO Primary Care Provider [phone] Augustine Wood MD Primary Care Provider [phone] Augustine Wood MD Unavailable [phone] Encounter Details Date Type Department Care Team (Late st Contact Info) Description 08/20/2017 Procedure Pass [facility], [facility] [address] [place] [address] Social History Tobacco Use Types Packs/Day Years [...] Description 04/13/2026 2:30 PM EDT Office Visit [facility] [address] [place] [address] Augustine Wood MD [address] [place] [address], [address] [place] [address] documented as of this encounter Visit Diagnoses Not on filedocumented in this encounter Care Teams Appeals Manager Relationship Specialty Start Date End Date Edgardo Krishnan DO PCP - General Internal Medicine 07/29/17 07/08/22 Augustine Wood MD [address] [place] [address], [address] [place] [address] PCP - General Family Medicine 07/09/22 Edgardo Krishnan DO Historical LMR Provider 06/17/17 Kristal Wheeler NP [address] [place] [address] Historical LMR Provider 06/17/17 2 Willy Juarez MD [address] [place] [address] Historical LMR Provider 06/17/17 Pastora Dee NP [address] [place] [phone] Historical LMR Provider 06/17/17 2 Sophia Pedroza, HYDROELECTRIC POWERPLANT SUPERVISOR [address] [place] [address] [email or web address] Historical LMR Provider 06/17/17 2 Mendoza Atkinson MD [address] [place] [address] Historical LMR Provider 06/17/17 2 Radha Reyes CNP [address] [place] [address], [address] [place] [address] Historical LMR Provider 06/17/17 Augustine Wood MD [address] [place] [address], [address] [place] [address] Insurance Assigned Provider 12/07/23 documented as of this encounter Additional Source Comments The information contained in this document represents components of the legal health record. It is not the complete legal health record.[facility]
== END 2025-07-02 09:55 | disposition home or self-care (01) ==
LOC: HO.HGS 09:28
PROVIDERS: PCP Family Medicine; Visit Provider Surgery
DX: D17.24 Benign lipomatous neoplasm of skin and subcutaneous tissue of left leg (principal)
CPT/HCPCS: 99204

== ENCOUNTER → 2025-07-02 09:27 | Outpatient (BNVA) | payer MEDICARE, OTHER, SELFPAY | PROVIDERS: PCP Family Medicine; Visit Provider Surgery | DX: D17.24 Benign lipomatous neoplasm of skin and subcutaneous tissue of left leg (principal) | CPT/HCPCS: 99202 ==

== ENCOUNTER 2025-08-12 05:53 | Day surgery (SDC) | payer MEDICARE, OTHER, SELFPAY ==
--- OUTSIDE RECORDS SUMMARY | 2025-07-21 10:20 | XMS_ITS | Data Portability ---
Author Organization [facility], Telehealth Patient Home Address [address] [place] [address] Assessment Encounter Date Assessment Date Assessment LastModified by Organization Details LastModified Time 01/22/2018 01/22/2018 cleared for surgery Not available 01/22/2018 15:40:25 09/06/2020 09/06/2020 ON THE DATE OF THIS ENCOUNTER, I PERSONALLY PERFORMED, FOR A TOTAL TIME OF , , , , , , , MINUTES, BOTH FACE TO FACE AND NON FACE TO FACE SERVICES WHICH INCLUDED: REVIEWING RECORDS, OBTAINING PATIENT HISTORY, PERFORMING A MEDICALLY APPROPRIATE EXAMINATION, COUNSELING AND EDUCATING THE PATIENT/FAMILY /CAREGIVER AND DOCUMENTING CLINICAL INFORMATION IN THE ELECTRONIC HEALTH RECORD ADDITIONAL SERVICES: Not available 09/06/2020 11:01:16 Plan of Treatment Reminders Order Date Submit Date Provider Last Modified By Organization Details Last Modified Time Details Appointments None recorded. Lab CMP, serum or plasma 2020 [facility], [address] [place] [address], [address], 11:33:57 lipid panel, blood 2020 021 [facility], [address] [place] [address], [address], 11:33:57 CBC 2020 [facility], [address] [place] [address], [address], 11:33:57 hepatitis C Ab, serum 2020 021 [facility], [address] [place] [address], [place], [address], 1 12:35:41 urinalysis, dipstick 2018 019 [facility], [address] [facility], [address], [place], [address], 9 10:25:49 lipid panel, blood 2017 018 [facility], [address] [place] [address], [place], [address], 8 06:54:22 CMP, serum or plasma 2017 018 [facility], [address] [place] [address], [place], [address], 8 06:54:22 Referral None recorded. Procedures None recorded. Surgeries None recorded. Imaging None recorded. Medication Orders propranolol ER 60 mg capsule,24 hr,extended release 2017 018 [id number], [address] [facility], [place], [address], 1 10:42:56 Patient TargetsNo targets recorded. Patient Instructions Encounter Date Encounter Id Patient Instructions Last Modified By Organization Details Last Modified Time 01/22/2018 [id number] high blood pressure: care instructions Not available 01/22/2018 15:41:35 learning about h igh blood pressure Not available 01/22/2018 15:41:35 05/12/2018 [id number] soriano's neuroma : care instructions Not available 05/12/2018 10:40:43 lightheadedness or faintness: care instructions Not available 05/12/2018 10:43:49 elevated blood pressure: care instructions Not available 05/12/2018 10:40:43 Reason for Referral None Reported. Results Created Date Observation Date Name Description Value Unit Range Abnormal Flag Note LastModifiedBy Organization Detail LastModifiedTime 11/19/19 19 11/18/2018 urina lysis , dipst ick Leukocytes Negati ve Not Available [facility] [address] [facility] [address], [place], [address], 11/18/2018 10:00:56 11/19/1911/18/2018 urina lysis , dipst ick Nitrite negati ve Not Available [facility] [address] [facility] [address], [place], [address], 11/18/2018 10:00:56 11/19/1911/18/2018 urina lysis , dipst ick Urobilinogen .[address] [facility] [address] [facility] [address], [place], [address], 11/18/2018 10:00:56 11/19/19 19 11/18/2018 urina lysis , dipst ick Protein Negati ve Not Available [facility] [address], [place], [address], 11/18/2018 10:00:56 11/19/1911/18/2018 urina lysis , dipst ick pH 5.5 Not Available [facility] [address], [place], [address], 11/18/2018 10:00:56 11/19/1911/18/2018 urina lysis , dipst ick Blood Negati ve Not Available [facility] [address] [facility] [address], [place], [address], 11/18/2018 10:00:56 11/19/1911/18/2018 urina lysis , dipst ick Specific [place] 1.010 Not Available [facility] [address], [place], [address], 11/18/2018 10:00:56 11/19/1911/18/2018 urina lysis , dipst ick Ketone Negati ve Not Available [facility] [address] [facility] [address], [place], [address], 11/18/2018 10:00:56 11/19/19 19 11/18/2018 urina lysis , dipst ick Bilirubin Negati ve Not Available [facility] [address] [facility] [address], [place], [address], 11/18/2018 10:00:56 11/19/19 19 11/18/2018 urina lysis , dipst ick Glucose Negati ve Not Available [facility] [address] [facility] [address], [place], [address], 11/18/2018 10:00:56 11/19/19 19 11/18/2018 urina lysis , dipst ick Appearance Clear Not Available [facility] [address] [facility] [address], [place], [address], 11/18/2018 10:00:56 11/19/19 19 11/18/2018 urina lysis , dipst ick Color Yellow Not Available [facility] [address] [facility] [address], [place], [address], 11/18/2018 10:00:56 07/30/20 18 07/30/2018 MAMMO , scree toni, bilat eral No observ ation record ed. [address], [address], 07/31/2018 18:34:19 08/29/20 20 08/29/2020 MAMMO , diagn ostic , digit al, bilat eral No observ ation record ed. [facility] [address] [place] [address], [address], 09/06/2020 11:16:26 08/31/20 21 08/31/2021 MAMMO , scree toni, digit al, bilat eral No observ ation record ed. [facility] [address] [place], [address], 08/31/2021 15:45:47 09/04/19 23 09/04/2022 MAMMO , fanny muñoz, digit al, bilat eral No observ ation record ed. [email or web address] [facility] [address] [place], [address], 09/04/2022 10:28:57 Result Notes None recorded. 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 Please review this document and add these problems to the patient's chart manually as needed. Problem Notes None recorded. Procedures Surgical History Date Name Laterality Status Provider Name and Address Organization Details Recorded Time 12/20/19 21 Colonoscopy completed Edgardo Krishnan, DO [address] [facility], [place], [address], [facility] 12/19/2020 09:54:58 Imaging Results None recorded. Procedure Notes None recorded. Medical Equipment None Reported. Allergies Allergen ID Allergen Name Allergen Category Reaction Reaction Severity Criticality Documentation Date Start Date Code Code System Note Provider Name and Address Organization Details Recorded Time 1432 lisinopri l medicatio n Not available Not available Not available 01/22/2018 98503 RxNorm Guillermina De Santiago [facility] 8 08:20:40 1433 Aleve medicatio n Not available Not available Not available 01/22/2018 49618 1 RxNorm Guillermina De Santiago [facility] 8 08:20:44 1435 Provera medicatio n Not available Not available Not available 01/22/201829286 8 RxNorm Guillermina De Santiago [facility] 8 08:20:58 Medications Name Sig Start Date Stop Date Status Note LastModified by Organization Details LastModified Time losartan 50 mg tablet take 1 tablet by mouth once a day 11/18 completed Not Available Not Available Not Available metoprolol succinate ER 50 mg tablet,exte nded release 24 hr TAKE 1 TABLET BY MOUTH EVERYDAY AT BEDTIME active Not Available Not Available No t Available spironolact one 25 mg-hydrochl orothiazide 25 mg tablet 01/22 completed Not Available Not Available Not Available propranolol ER 60 mg capsule,24 hr,extended release take 1 capsule by mouth once a day 09/06 completed Not Available Not Available Not Available nystatin-tr iamcinolone 100,000 unit/gram-0 .1 % topical ointment 01/22 completed Not Available Not Available Not Available betamethaso ne valerate 0.1 % topical cream 09/06 completed Not Available Not Available Not Available ranitidine 150 mg tablet Take 1 tablet twice a day by oral route for 90 days. 09/06 completed Not Available Not Available Not Available losartan 25 mg tablet Take 1 tablet every day by oral route. 09/06 completed Not Available Not Available Not Available hydrochloro thiazide 12.5 mg capsule 01/22 completed Not Available Not Available Not Available methylpredn isolone 4 mg tablets in a dose pack 11/18 completed Not Available Not Available Not Available ondansetron 4 mg disintegrat ing tablet active Not Available Not Available N ot Available olmesartan 5 mg tablet TAKE 1 TABLET BY MOUTH EVERY DAY IN THE MORNING active Not Available Not Available No t Available diclofenac 1 % topical gel 11/18 completed Not Available Not Available Not Available GaviLyte-G 236 gram-22.74 gram-6.74 gram-5.86 gram oral solution 01/22 completed Not Available Not Available Not Available Probiotic active Not Available Not Bessie ilable Not Available glucosamine 116 mg-chondroi tin 100 mg-dietary supplement no.25 capsule Take by oral route. active Not Available Not Available No t Available Digestive Enzymes (maltase,la ctase,inver tase) 220 mg capsule Take by oral route. active Not Available Not Available No t Available Afluria Qd 2019- (36 mos up)(PF)60 mcg (15 mcg x4)/0.5 mL IM syringe [facility]ARMACY [facility]IST[facility] 09/06 completed Not Available Not Available Not Available Vitals Date Recorded Body height Body mass index (BMI) Body weight Heart rate Oxygen saturation Oxygen saturation in Arterial blood by Pulse oximetry Systolic And Diastolic Provider Name and Address Organization Details Last Updated DateTime 1 168.28 cm 23.4 kg/m2 48300.4 9 g 68 /min 99 % 99 % 130/82 mm[Hg] Guillermina De Santiago [facility] 1 10:44:56 Date Recorded Body height Body mass index (BMI) Body weight Heart rate Oxygen saturation Oxygen saturation in Arterial blood by Pulse oximetry Systolic And Diastolic Provider Name and Address Organization Details Last Updated DateTime 9 168.28 cm 23.1 kg/m2 20952.7 4 g 58 /min 98 % 98 % 140/80 mm[Hg] Yessi Dang [facility] 9 09:59:40 Date Recorded Body weight Heart rate Oxygen saturation Oxygen saturation in Arterial blood by Pulse oximetry Body mass index (BMI) Body height Systolic And Diastolic Provider Name and Address Organization Details Last Updated DateTime 8 69522.3 2 g 73 /min 96 % 96 % 22.2 kg/m2 170.18 cm 110/74 mm[Hg] Edgardo Krishnan DO [address] [place], [address], [facility] 8 15:20:00 Date Recorded Body height Body mass index (BMI) Body weight Heart rate Oxygen saturation Oxygen saturation in Arterial blood by Pulse oximetry Systolic And Diastolic Provider Name and Address Organization Details Last Updated DateTime 8 170.18 cm 23 kg/m2 09443.7 2 g 62 /min 98 % 98 % 132/70 mm[Hg] Guillermina De Santiago [facility] 8 10:21:15 Social History Question Answer Notes LastModified by Organizat ion Details LastModified Time Tobacco Smoking Status Never Smoker Not Available [facility] 07/[facility]/2020 03:36:24 What Was The Date Of Your Most Recent Tobacco Screening? 09/06/2020 jvanasse Information not available 09/06/2020 Sex: Unknown Functional Status None recorded. Mental Status None recorded. Family History Nothing Reported. Medical History Condition Response Coronary Artery Disease N Gout N Other N Kidney Stones N Blood Diseases N Blood Transfusion N Breast Cancer N Lung Disease N Depression N COPD N Defects or Inherited Disease N Anxiety Disorder N Muscle, Joint, or Bone Problems N Obesity N Vision or Eye Problems N Arthritis N Infertility N Polyps N Mental Disorder N Cancer N Stroke N Varicosities N Endometriosis N Bladder or Kidney Problems N High Cholesterol N Liver Disease N Fibromyalgia N Headaches N Kidney Disease N Allergies/Hayfever N Heart Problems N Hospitalizations N Thyroid Problems N GI Problems N Eating Disorder N Skin Problems N Anemia N MRSA exposure N Constipation N Mental Illness N Diabetes N Ovarian Cancer N Seizures/Epilepsy N Tuberculosis N Congestive Heart Failure (CHF) N Eczema N Abuse/Domestic Violence N Diverticulitis N Asthma N Reflux/GERD N Hepatitis N Heart Disease N Pulmonary Embolism N Hypertension N Chicken Pox N Autism Spectrum Disorder (ASD) N Osteoporosis N Gynecological HistoryNo gynecological history recorded. Obstetrics History GPAL:G 0 P 0 0 0 0 Immunizations Vaccine Type Date Status Note Provider Nam e and Address Organization Details Recorded Time zoster live 9 completed Edgardo Krishnan DO [address] [place], [address], [facility] 12/28/2018 09:06:44 Influenza, split virus, quadrivalent, preservative 0 [facility] 09/06/2020 10:39:10 Past Encounters Encounter ID Performer Location Encounter Start Date Encounter Closed Date Diagnosis/Indication Diagnosis SNOMED-CT Code Diagnosis ICD10 Code Diagnosis IMO Codes Diagnosis Note [id number] Edgardo Krishnan [facility] [address] [place] [address], [place] [address] 01/22/2018 15:01:01 01/24/2018 09:21:39 Pre-surgery evaluation 809969601 Z01.818 patient is cleared for proposed lipomectom y. no contraindi cations informed to take meds as usual day of surgery per AHA 2014 risk guide she is a low risk for this procedure; Essential hypertension 08303451 I10 [id number] Edgardo Krishnan [address], [place] [address] 05/12/2018 10:14:00 05/12/2018 11:32:49 Hypertensive disorder 36358042 I10 bps are good here and at home will cont current tx Soriano's metatarsalgia 34285862 G57.62 must change work boots and get a podiatry [facility]t [facility] R42 will try treating with otc allergy do not feel this is med related [id number] Edgardo Krishnan [facility] [address] [place] [address], [place] [address] 11/18/2018 09:50:30 11/18/2018 13:45:49 Adult health examination 309289805 Z00.00 [id number] Edgardo Krishnan [facility] [address], [place] [address] 09/06/2020 10:27:19 09/06/2020 11:20:39 Active or passive immunization 384768741 Z23 discussed in detail told to get pneumococc al vacc Adult heal th examination 608269110 Z00.00 htn is followed by dr gilmore doing well Hepatitis C screening 41 5175583 Z11.59 Health Concerns Section Related Observation LastModified by Organization Detai ls LastModified Time None Recorded Concern Status LastModified by Organization Details LastModified Time None Recorded Advance Directives Directive None Recorded Payers Insurance Date Sequence Insurance Name Policy Number Policy Leon Covered Member ID Leon Member ID Guarantor Name 09/04/2020 1 [facility] (INDEMNITY) [id number] 2 Erma Schafer [id number] Erma Pitts Shakirlibrado Notes Date Note Type Note Provider Name a nd Address Organization Details Recorded Time 8 text/html Hypertension F/UReported by PatientHPIFor medications, patient reportstaking medications as directedandno side effects from medication. For lifestyle, patient reportsregular exercise,limiting/hunter iding salt, andcompliant with low salt diet. For associated symptoms, patient reportsno dizziness,no lightheadedness,no chest pain,no shortness of breath,no palpitations,no edema,no calf pain with exertion, andno headache. 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 deep resection needed Edgardo Krishnan DO [address] [place] [address], [address], [facility] 01/22/2018 15:42:08 8 text/html ROS as noted in the HPI has an occasional episode of light headedness occurs for just a few seconds and states if she moves quickly it will disappear has ocurred about weekly also states at night gets bottom of foot gets very sore and with pins and needles and only at night states sore and will eventually calm down during the day has a little discomfort otherwise is feeling ok Patient is a __ year old female with a history of hypertension. Patient had been stable on medication until recently. Patient returns today for further evaluation. Edgardo Krishnan DO [address] [place], [address], [facility] 05/12/2018 10:44:02 9 text/html Annual WellnessReported by PatientSocial/Behavio ral HistoryFor diet and nutrition, patient reportshealthy diet. For fracture risk, patient reportsno history of fractures,no recent explained fracture,no sudden unexplained fractures, andno previous musculoskeletal injuries. For physical activity, patient reportsexercises on a regular basis,recent increase in physical activity, andgood physical condition. For additional lifestyle factors, patient reportsno tobacco use,no alcohol intake, andstopped drinking alcohol.Mental Status:For depression risk, patient reportsnever feels sad, empty, or tearful,no loss of interest in activities,no significant changes in weight,no sleep disturbances or insomnia,no agitation,no loss of energy,no feelings of worthlessness or guilt,no thoughts of suicide,no history of depression, andno history of mood disorders.Functional AbilityFor hearing, patient reportsno loss of hearing. For vision, patient reportsno vision problems.ROS as noted in the HPI here for rech annual exam doing great very active eats really well Edgardo Krishnan DO [address] [place], [address], [facility] 11/18/2018 10:31:47 1 text/html Annual WellnessReported by PatientSocial/Behavio ral HistoryFor diet and nutrition, patient reportshealthy diet. For fracture risk, patient reportsno history of fractures,no recent explained fracture,no sudden unexplained fractures, andno previous musculoskeletal injuries. For physical activity, patient reportsexercises on a regular basis,recent increase in physical activity, andgood physical condition. For additional lifestyle factors, patient reportsno tobacco use,no alcohol intake, andstopped drinking alcohol.Mental Status:For depression risk, patient reportsnever feels sad, empty, or tearful,no loss of interest in activities,no significant changes in weight,no sleep disturbances or insomnia,no agitation,no loss of energy,no feelings of worthlessness or guilt,no thoughts of suicide,no history of depression, andno history of mood disorders.Functional AbilityFor hearing, patient reportsno loss of hearing. For vision, patient reportsno vision problems.ROS as noted in the HPI Edgardo Krishnan DO [address] [place], [address], [facility] 09/06/2020 11:18:29 OBGyn Episode No OBEpisode recorded.
--- OUTSIDE RECORDS SUMMARY | 2025-07-21 10:20 | XMS_ITS | Patient Health Record ---
Author Organization [facility] Address [address] [place] [address] Care Team Providers Care Securities Compliance Examiner Name Role Phone Edgardo Krishnan MD Primary Care Provider Bryn Malin Unavailable [phone] Allergies Allergen (clinical drug ingredient) Drug/Non Drug [...] Date Coverage End Date Medicare National Govt [employer] [address] [place] [address] [id number] Erma Puckett i Self - patient is the insured [employer]) [address] [place] [address] [id number] Erma Puckett i Self - patient [...]
[2025-08-10 10:50] VITALS: BMI 20.3
[2025-08-12 06:00] VITALS: BP 139/69; PULSE 51; RESP 18; TEMP 36.4; O2SAT 97; BMI 20.3
[2025-08-12] MEDS: Lactated Ringers 1,000 ML 100 ML IVCONT (06:25)
--- NOTE | 2025-08-12 07:20 | HO.ANESPROP2 ---
Documented by User: Debby Linder NP 08/09/25 13:57 HPI - Anesthesia Eval Consult details Narrative: 70 yr old female for left Excision of Lipoma on Hip PMFSH Active Problems Active Problems: All Active Problems (Updated 07/02/25 @ 10:29 by Edward North MD) Hypertension (Acute) Lipoma (Acute) Past Medical History Medical History (Updated 08/12/25 @ 06:15 by Kaitlynn Mccall RN) Uterine fibroid Hypertension Surgical History Surgical History (Updated 07/02/25 @ 10:36 by ZION Young) Hx of colonoscopy (04/28/24) Hx of local excision of skin lesion (~2017) History of surgery on left wrist (~2016) Hx of tonsillectomy (~1989) History of appendectomy (~1976) Hx laparoscopic cholecystectomy Social History Social History Patient Tobacco Use Status: Never used Tobacco Use of substances other than those prescribed or required for medical reasons: No Have you been hit, kicked, punched, or otherwise hurt by someone within the past year? If so, by whom?: No Are you DNR?: No Advance Directives: No Advance Directives Information Provided: Yes Meds Allergies Allergy/AdvReac Type Severity Reaction Status Date / Time codeine Allergy Mild Unknown Verified 07/02/25 10:39 lisinopril Allergy Mild Unknown Verified 07/02/25 10:39 medroxyprogesterone (From Allergy Mild Unknown Verified 07/02/25 10:39 Provera) metronidazole Allergy Mild Unknown Verified 07/02/25 10:39 naproxen (From Aleve) Allergy Mild Unknown Verified 07/02/25 10:39 Seasonal Allergies Allergy Mild Unknown Verified 07/01/25 15:59 oxycodone Allergy Nausea and Verified 08/12/25 06:27 Vomiting vicryl stitches Allergy Mild Unknown Uncoded 07/02/25 10:39 Home Medications ?Medication ?Instructions ?Recorded ?Confirmed ?Last Taken ?Type L. acidophilus,casei,rhamnosus 50 1 cap PO DAILY 07/02/25 08/10/25 Unknown History billion cell capsule,delayed release (BiomePRO) calcium 600 mg (as 1 cap PO DAILY 07/02/25 08/10/25 08/11/25 History carbonate)-vitamin D3 12.5 mcg (500 unit) capsule digestive enzymes 1 tab PO DAILY 07/02/25 08/10/25 08/11/25 History fluticasone furoate 27.5 1 spray intranasal DAILY 07/02/25 08/10/25 08/09/25 History mcg/actuation nasal spray,suspension (Flonase Sensimist) metoprolol succinate 50 mg 50 mg PO BEDTIME 07/02/25 08/12/25 08/11/25 History tablet,extended release 24 hr olmesartan 5 mg tablet 5 mg PO DAILY 07/02/25 08/10/25 08/11/25 History Documented by User: Annabella Martinez DO 08/12/25 08:02 [facility] Past Medical History Medical History (Updated 08/12/25 @ 06:15 by Kaitlynn Mccall RN) Uterine fibroid Hypertension Family History Family history of problems with anesthesia: No Surgical History Surgical History (Updated 07/02/25 @ 10:36 by ZION Young) Hx of colonoscopy (04/28/24) Hx of local excision of skin lesion (~2017) History of surgery on left wrist (~2016) Hx of tonsillectomy (~1989) History of appendectomy (~1976) Hx laparoscopic cholecystectomy History of Problems with Anesthesia: Yes (PONV) Social History Social History Patient Tobacco Use Status: Never used Tobacco Use of substances other than those prescribed or required for medical reasons: No Have you been hit, kicked, punched, or otherwise hurt by someone within the past year? If so, by whom?: No Are you DNR?: No Advance Directives: No Advance Directives Information Provided: Yes Meds Allergies Allergy/AdvReac Type Severity Reaction Status Date / Time codeine Allergy Mild Unknown Verified 07/02/25 10:39 lisinopril Allergy Mild Unknown Verified 07/02/25 10:39 medroxyprogesterone (From Allergy Mild Unknown Verified 07/02/25 10:39 Provera) metronidazole Allergy Mild Unknown Verified 07/02/25 10:39 naproxen (From Aleve) Allergy Mild Unknown Verified 07/02/25 10:39 Seasonal Allergies Allergy Mild Unknown Verified 07/01/25 15:59 oxycodone Allergy Nausea and Verified 08/12/25 06:27 Vomiting vicryl stitches Allergy Mild Unknown Uncoded 07/02/25 10:39 Home Medications ?Medication ?Instructions ?Recorded ?Confirmed ?Last Taken ?Type L. acidophilus,casei,rhamnosus 50 1 cap PO DAILY 07/02/25 08/10/25 Unknown History billion cell capsule,delayed release (BiomePRO) calcium 600 mg (as 1 cap PO DAILY 07/02/25 08/10/25 08/11/25 History carbonate)-vitamin D3 12.5 mcg (500 unit) capsule digestive enzymes 1 tab PO DAILY 07/02/25 08/10/25 08/11/25 History fluticasone furoate 27.5 1 spray intranasal DAILY 07/02/25 08/10/25 08/09/25 History mcg/actuation nasal spray,suspension (Flonase Sensimist) metoprolol succinate 50 mg 50 mg PO BEDTIME 07/02/25 08/12/25 08/11/25 History tablet,extended release 24 hr olmesartan 5 mg tablet 5 mg PO DAILY 07/02/25 08/10/25 08/11/25 History Exam Exam Date and Time: 08/12/25 0720 Height,Weight and Vital Signs: Height 5 ft 6 in Weight 57 kg Vital Signs Temperature 97.6 F 08/12/25 06:00 Pulse Rate 51 08/12/25 06:00 Respiratory Rate 18 08/12/25 06:00 Blood Pressure 139/69 08/12/25 06:00 Pulse Oximetry 97 08/12/25 06:00 Oxygen Delivery Method Room Air 08/12/25 06:00 Temperature 97.6 F 08/12/25 06:00 Pulse Rate 51 08/12/25 06:00 Respiratory Rate 18 08/12/25 06:00 Blood Pressure 139/69 08/12/25 06:00 Pulse Oximetry 97 08/12/25 06:00 Oxygen Delivery Method Room Air 08/12/25 06:00 Airway Mallampati Class: I TM Dist: >3cm Neck ROM: Full Loose/Missing/Broken Teeth: No (patient denies any loose or broken teeth) Heart: S1S2 Lungs: CTAB Assessment and Plan Assessment Anesthesia Assessment: Anesthesia Plan Discussed and Chart Reviewed Final Anesthetic Review Family History of Problems with Anesthesia: No History of Problems with Anesthesia: Yes (PONV) NPO: Yes ASA Class: II Final Preanesthetic Review: No Changes in Pt Med Stat, Meds/Allgs Chart Reviewed, Consent Obtained/Reviewed and Anes Risks/Benef Reviewed Patient Risk: Low Procedure Risk: Low Anesthetic Plan Anesthetic Plan: MAC: and Agree w/ Assess. and Plan Disposition: Standard PACU
--- NOTE | 2025-08-12 07:33 | MHC.SHP ---
Pre-Procedural Eval Section A - 24 Hr Update-Section A only Date of Service: 08/12/25 The patient is an INPATIENT: No Changes since office visit: Yes Patient answered all questions; No Cold of Flu in the past 2 weeks, No New Medical Problems and No Changes in Medication The patient has been examined within 24 hours of the surgical procedure. The History & Physical has been completed within 30 days and I have reviewed it.: No Section B - Complete if H&P > 30 days Chief Complaint: Benign lipomatous neoplasm, unspecified Details of Present Illness: No change in her symptoms left hip Relevant Family History (Specify if Yes): No Relevant Social History: None Present Medications: see Short Stay Collaborative assessment Medical History: No relevant PMH History of Previous Operations: Relevant previous surgery/procedure and date(s) (Previous excision lipoma left hip) Allergies: Allergies Allergy/AdvReac Type Severity Reaction Status Date / Time codeine Allergy Mild Unknown Verified 07/02/25 10:39 lisinopril Allergy Mild Unknown Verified 07/02/25 10:39 medroxyprogesterone (From Allergy Mild Unknown Verified 07/02/25 10:39 Provera) metronidazole Allergy Mild Unknown Verified 07/02/25 10:39 naproxen (From Aleve) Allergy Mild Unknown Verified 07/02/25 10:39 Seasonal Allergies Allergy Mild Unknown Verified 07/01/25 15:59 oxycodone Allergy Nausea and Verified 08/12/25 06:27 Vomiting vicryl stitches Allergy Mild Unknown Uncoded 07/02/25 10:39 Review of Systems Sugical H&P ROS: Negative: Constitution, Cardiovascular, Respiratory, Neurological, Psychiatric, Hem-Onc, Allergic/Immunologic, Gastrointestinal, Genitourinary, Musculoskeletal, Integumentary, Endocrine and Eyes/Ears/Nose/Throat Exam Surgical H&P Exam: Normal: HEENT, Normal: Heart, Normal: Lungs, Normal: Extremities, Normal: Abdomen, Normal: Skin and Normal: Neurological Plan Diagnosis/Plan: Unchanged I have reviewed the history and physical and performed a pertinent physical examination on my patient. No changes have occurred unless specified. Time Spent With Patient Time: Total time managing care of this patient today ____ minutes.
--- NOTE | 2025-08-12 08:10 | W.PM.OPN ---
Operative Note Operative Note Date of Service: 08/12/25 Narrative: Preoperative diagnosis: Recurrent lipoma left hip Postoperative diagnosis: Same Procedure: Excision recurrent lipoma left hip Surgeon: Edward North MD Statistician Mathematical: Burton Gonzalez PA-C, Rocio Gonzalez, MS-3 Anesthesia:MAC Indications for procedure: 70-year-old female patient presenting with a recurrent lipoma of the left hip presumably was excised now with a new lump located below the previous incision measuring approximately 6 cm in diameter. Operative findings: Lipoma approximately 6 cm in diameter Specimen: Lipoma left hip Estimated blood loss: 2 mL Complications: None Procedure details: Patient was brought to the OR placed in a supine position. She was administered light anesthesia and placed in a right lateral decubitus position. The left hip was prepped with a ChloraPrep and draped in a sterile fashion. A surgical time-out was called the consent confirmed. Patient received preoperative antibiotics. Local anesthesia was then infiltrated over the palpable lipoma in the oblique fashion an incision was made directly over the lipoma. This was carried down through subcutaneous tissue up to the lipoma. Lipoma was located below the fascia. This was incised with the electrocautery in the lipoma grasped with an Allis clamp. This was then dissected from the surrounding muscular tissue using electrocautery. The lesion was passed off the table and sent to pathology for further examination. Wounds were checked for hemostasis. Wounds were then irrigated with saline solution and suctioned dry. Skin was then closed using interrupted 4-0 nylon sutures. Sterile dressings consisting of 4 x 4 gauze and Tegaderm were then applied. The patient tolerated the procedure well. Sponge, instrument, and needle counts reported as correct. The patient was transferred to PACU in stable condition.
[2025-08-12 08:24] VITALS: BP 121/54; PULSE 68; RESP 14; TEMP 36.2; O2SAT 99
[2025-08-12 08:40] VITALS: BP 125/64; PULSE 63; RESP 16; TEMP 36.3; O2SAT 100
== END 2025-08-12 09:19 | disposition home or self-care (01) ==
PROVIDERS: PCP Family Medicine; Visit Provider Surgery
PROC: (CPT 27045; principal; 2025-08-12 07:30)
DX: D21.22 Benign neoplasm of connective and other soft tissue of left lower limb, including hip (principal); I10 Essential (primary) hypertension; Z79.899 Other long term (current) drug therapy; Z88.5 Allergy status to narcotic agent; Z88.6 Allergy status to analgesic agent; Z88.8 Allergy status to other drugs, medicaments and biological substances; Z98.890 Other specified postprocedural states; Z90.49 Acquired absence of other specified parts of digestive tract
CPT/HCPCS: 27045; 88304; J0131; J0690; J1100; J2003; J2250; J2704; J3010

== ENCOUNTER → 2025-08-12 05:53 | Outpatient (BNV) | payer MEDICARE, OTHER, SELFPAY | PROVIDERS: PCP Family Medicine; Visit Provider Surgery | DX: D17.1 Benign lipomatous neoplasm of skin and subcutaneous tissue of trunk (principal) | CPT/HCPCS: 11406 ==